=== PATIENT | female | born 1940 | race Caucasian/White ===

== ENCOUNTER 2017-01-24 12:20 | Emergency (ER) | payer OTHER ==
[~2017-01-24 12:20] MED LIST: ATORVASTATIN CA20 MG PO; DEMADEX10 MG PO; DIGOXIN0.125 MG PO; ELIQUIS5 MG PO; FERROUS SULFAT325 M1 PO; GABAPENTIN300 MG PO; KLOR-CON 1010 MEQ PO; LISINOPRIL2.5 MG PO; METOPROLOL SUCC25 MG PO; METRONIDAZOLE500 MG PO; ONDANSETRON ODT4 MG PO; OXAYDO5 MG PO; PERCOCET1 TA2 PO; SEROQUEL25 MG PO; ZESTRIL2.5 MG PO; ZOLOFT25 MG PO; [UNRECOGNIZED DRUG - OTHER] PO
--- NOTE | 2017-01-24 15:15 | DIAGNOSTIC IMAGING REPORT ---
PROCEDURE: XR CHEST 1 VIEW INDICATION: COUGH TECHNIQUE: Portable AP view 02:50 p.m. COMPARISON: Chest 03/31 and 02/14/2016 FINDINGS: Stable moderate cardiomegaly with pulmonary vascular congestion. No effusions. Left subclavian dual lead pacemaker/defibrillator. There are no infiltrates. Mild elevation right hemidiaphragm. No suspicious osseous lesions. IMPRESSION: 1. Cardiomegaly with pulmonary vascular congestion 2. Pacemaker/defibrillator
--- NOTE | 2017-01-24 17:51 | ED CLINICAL REPORT ---
Clinical Report - Physicians/Mid Levels [facility] [address] [place] [address] 01/24/2017 12:20 Patient: ODILON RYAN Time Seen: 12:52. Arrived- By private vehicle. Historian- patient. HISTORY OF PRESENT ILLNESS Chief Complaint: DIARRHEA. This started about 4 - 5 days ago and is still present. It was gradual in onset and has been constant and waxing/waning. The patient has had nausea. She has had diarrhea. This has occurred numerous times. No black stools or bloody stools. Has not recently been on antibiotics. The illness is described as severe. (patient has a history of Clostridium difficile that was treated last summer. She says that her stools have been pretty much normal up until recently. About one week ago she developed "a cold" which then progressed into "the flu." she says that the respiratory symptoms have largely resolved but about 4-5 days ago she developed diarrhea which is very similar to that which she experienced last summer. She says that is very malodorous and green in color. She describes generalized abdominal cramping with it as well.). REVIEW OF SYSTEMS No chills, fever, sweats, calf pain or chest pain. No cough, difficulty breathing, pedal edema, palpitations or urinary problems. All systems otherwise negative, except as recorded above. PAST HISTORY Problems: Atrial Fibrillation. C. Difficile Colitis. Diarrhea. Epistaxis. Spinal Cord Compression. Herniated Disk. Heart Disease. Congestive Heart Failure. Mitral regurgitation. Hypotension. Anemia. Dehydration. Cancer. Hypertension. Coronary Artery Disease. Additional Surgeries: 5 stents placed in Sep 2011. Back Surgery. Cataract Surgery. Defibrillator placed 02/15/12. Hysterectomy. Medications: Warfarin Sodium Oral. Atorvastatin Calcium Oral 20 mg, at bedtime. Digoxin Oral (Tablet 125 mcg) 1 tablet, every other day. Ferrous Sulfate Oral 325 mg, 2x a day. Gabapentin Oral (Capsule 300 mg), 3x a day. Lisinopril Oral 2.5 mg, daily. Ondansetron Oral 4 mg, 3x a day. Potassium Chloride Oral 10 meq, 2x a day. Sertraline HCl Oral 12.5mg, daily. Torsemide Oral (Tablet 20 mg), 2x a day. Allergies: Penicillins. Vancomycin. SOCIAL HISTORY Current every day light tobacco smoker (cigarette)- less than 1/2 a pack per day. No alcohol use or drug use. FAMILY HISTORY No significant family medical history. ADDITIONAL NOTES The nursing notes have been reviewed. PHYSICAL EXAM Vital Signs: 01/24/2017 12:30 BP: 74/48. HR: 88. RR: 15. O2 saturation: 92%. Temp: 97.9 F. Pain level now: 8/10. Have been reviewed. Appearance: Alert. Eyes: Pupils equal, round and reactive to light. ENT: Dry mucous membranes present. Neck: Normal inspection. Neck supple. CVS: Normal heart rate and rhythm. 2/6 systolic murmur. Heart sounds normal. Respiratory: No respiratory distress. Decreased air movement. No rales, rhonchi or wheezes. Abdomen: Soft. Mild tenderness diffusely. Abnormal bowel sounds: hyperactive. No organomegaly. No mass. Back: Normal inspection. Skin: Skin warm and dry. Normal skin color. Normal skin turgor. Extremities: Extremities exhibit normal ROM. No calf tenderness. No lower extremity edema. LABS, X-RAYS, AND EKG EKG: Atrial fibrillation. RBBB. Non-specific ST segment / T wave abnormalities. EKG unchanged when compared with prior EKG. (23 April 2016). The study has been independently viewed by me. Chest X-ray: (IMPRESSION: 1. Cardiomegaly with pulmonary vascular congestion 2. Pacemaker/defibrillator). The X-rays were interpreted by the radiologist and contemporaneously by me. Laboratory Tests: UA-Culture if indicated: (FELTON: 01/24/2017 14:03) ( MsgRcvd 01/24/2017 14:31) Final results Test Result Flag Units (Reference) URINE COLOR YELLOW URINE APPEARANCE SL CLOUDY URINE GLUCOSE NEGATIVE (NEGATIVE) URINE BILIRUBIN NEGATIVE (NEGATIVE) URINE KETONE NEGATIVE (NEGATIVE) URINE SPECIFIC GRAVITY >= 1.030 (1.010-1.030) URINE PH 5.5 (5.0-8.0) URINE PROTEIN NEGATIVE (NEGATIVE) URINE UROBILINOGEN 0.2 EU/dL (0.2-1.0) URINE NITRITE NEGATIVE (NEGATIVE) URINE BLOOD NEGATIVE (NEGATIVE) URINE LEUK ESTERASE NEGATIVE (NEGATIVE) URINE RBC 0-1 rbc/hpf (0-1) URINE WBC 0-1 wbc/hpf (0-1) URINE EPITHELIAL CELLS 3-5 EPI/hpf (0-5) URINE BACTERIA MODERATE (2+ TO 3+) (NONE SEEN) URINE COMMENT CULTURE INDICATED 50-75 Hyaline Casts/l.p.f.2+ AmorphousURINE CULTURES ARE SET-UP BASED ON THE FOLLOWING CRITERIA:POSITIVE NITRITEPOSITIVE LEUKOCYTE ESTERASEGREATER THAN 10 WHITE BLOOD CELLSMODERATE (2+) OR GREATER BACTERIA CBC w Diff: (FELTON: 01/24/2017 13:05) ( [facility] [place] 01/24/2017 14:16) Final results Test Result Flag Units (Reference) WHITE BLOOD COUNT 19.1 H K/uL (4.5-11.5) MANUAL DIFFERENTIAL TO FOLLOW RED BLOOD COUNT 4.23 M/uL (4.00-5.20) HEMOGLOBIN 12.7 gm/dL (12.0-16.0) HEMATOCRIT 38.3 % (36.0-46.0) MEAN CELL VOLUME 91 fL (80-100) MEAN CORPUSCULAR HGB 30 pg (26-34) MEAN CORPUSCULAR HGB CONC 33 g/dL (31-37) RED CELL DISTRIBUTION WIDTH 14.8 % (11.6-14.8) PLATELET COUNT 225 K/uL (150-400) POLY % 73 % (50-75) BAND % 4 % (0-8) LYMPH 13 L % (25-40) MONO 10 % (3-14) EOSINOPHIL % 0 % (0-4) BASOPHIL % 0 % (0-2) METAMYELOCYTE % 0 % (0-1) MYELOCYTE 0 % (0-1) OTHER CELL TYPE 0 RBC MORPHOLOGY NORMOCHROMIC~~NORMOCYTIC OCT COMMENT 1+ VACUOLATED SEGS PT with INR: (FELTON: 01/24/2017 13:02) ( [facility] [place] 01/24/2017 14:58) Final results Test Result Flag Units (Reference) INR 2.2 H (0.8-1.2) Low Intensity Therapy: INR 1.5-2.0 PT range 18.5-23.1Mod.Intensity Therapy: INR 2.0-3.0 PT range 23.1-31.5High Intensity Therapy: INR 2.5-3.5 PT range 27.4-35.5High Intensity Therapy 2: INR 3.0-4.0 PT range 31.5-39.3 APTT 44 H SECONDS (24-34) BNP: (FELTON: 01/24/2017 13:05) ( [facility] [place] 01/24/2017 15:37) Final results Test Result Flag Units (Reference) B-TYPE NATRIURETIC PEPTIDE 262 H pg/ml (5-100) Digoxin Level: (FELTON: 01/24/2017 13:02) ( [facility] 01/24/2017 15:28) Final results Test Result Flag Units (Reference) DIGOXIN 0.4 L ng/mL (0.9-2.0) THYROID STIMULATING HORMONE 0.938 uIU/mL (0.30-3.74) Lactate, Serum: (FELTON: 01/24/2017 14:48) ( [facility] [place] 01/24/2017 15:21) Final results Test Result Flag Units (Reference) LACTIC ACID 1.1 mmol/L (0.4-2.0) CMP: (FELTON: 01/24/2017 13:05) ( [facility] 01/24/2017 13:30) Final results Test Result Flag Units (Reference) GLUCOSE 106 mg/dL (70-110) BUN 67 H mg/dL (7-18) CREATININE 3.9 H mg/dL (0.6-1.3) Estimated GFR 11.98 mL/min Estimated GFR- 14.52 mL/min Note: Persistent reduction over 3 months in eGFR<60 mL/min/1.73 m2 defines CKD. Patients with eGFR values>=60 mL/min/1.73 m2 may also have CKD if evidence ofpersistent proteinuria. Additional information may be foundat www.kidney.org. SODIUM 133 L mmol/L (136-145) POTASSIUM 3.1 L mmol/L (3.5-5.1) CHLORIDE 98 mmol/L (98-107) CARBON DIOXIDE 19 L mmol/L (21-32) CALCIUM 8.2 L mg/dL (8.5-10.1) TOTAL PROTEIN 7.7 g/dL (6.4-8.2) ALBUMIN 3.2 L g/dL (3.3-5.0) BILIRUBIN, TOTAL 0.4 mg/dL (0.0-1.0) ALKALINE PHOSPHATASE 126 H U/L (46-116) AST (SGOT) 17 U/L (15-37) ALT (SGPT) 11 L U/L (12-78) LIPASE 211 U/L (73-393) AMYLASE 71 U/L (25-115) Rapid Influenza Screen: (FELTON: 01/24/2017 13:47) ( MsgRcvd 01/24/2017 14:11) Final results SPECIMEN DESCRIPTION: FOCUSER Test Result Flag Units (Reference) RAPID INFLUENZA SCREEN DATE: 01/24/17 INFLUENZA A: NEGATIVE SCREEN FOR INFLUENZA A INFLUENZA B: NEGATIVE SCREEN FOR INFLUENZA B . PROGRESS AND PROCEDURES Course of Care: 20:03 01/24/17. I explained to the patient to Dr. Cameron would like her to have oral vancomycin. However, given her prior allergy to this she is very resistant to taking medication. Therefore we will treat her with an initial dose of IV Flagyl and when she arrives there he can discuss the potential use of vancomycin with her further as indicated. Discussed case with hospitalist, (Rakesh - Hospitalist and Sugar Chavez, Shirt Cleaner at [address]). Reviewed test results and need for additional work-up. Agreed upon treatment plan and decision to admit. Health care provider will see patient in hospital. Patient/family counseled. Old medical records reviewed. Disposition: Transferred. CLINICAL IMPRESSION Diarrhea. Chronic congestive heart failure. Profound hypotension. Severe dehydration. Hypokalemia. possible Clostridium difficile. (Electronically signed by Wesley Salas MD 01/25/2017 9:17)
--- NOTE | 2017-01-24 17:51 | ED ORDER SUMMARY ---
..... Patient: ODILON RYAN OrderSheet [facility] VisitID: [id number] [address] [place] [address] 76y, F Registration Date/Time: 01/24/2017 ORDER SHEET Weight: 68.0 kg (estimated) Allergies: Penicillins, Vancomycin GENERAL ORDERS: EKG - ER Stat (12:49 01/24/2017 LNations ER Tech1 per protocol) (12:50 KHoerner) Technical Customer Support Specialist (Continuous) (13:04 01/24/2017 JBoardley R.N. per protocol) (13:04 JBoardley R.N.) CBC w Diff Urgent (13:04 01/24/2017 JBoardley R.N. per protocol) (Ack 13:05 KHoerner) (13:08 JBoardley R.N.) CMP Urgent (13:04 01/24/2017 JBoardley R.N. per protocol) (Ack 13:05 KHoerner) (13:08 JBoardley R.N.) UA-Culture if indicated Urgent (13:04 01/24/2017 JBoardley R.N. per protocol) (Ack 13:05 KHoerner) (14:03 JBoardley R.N.) Oxygen (2 L/min) (NC) (13:04 01/24/2017 JBoardley R.N. per protocol) (13:04 JBoardley R.N.) Pulse oximeter (13:04 01/24/2017 JBoardley R.N. per protocol) (13:04 JBoardley R.N.) Vitals (13:04 01/24/2017 JBoardley R.N. per protocol) (13:04 JBoardley R.N.) - (stool guaiac) (13:07 01/24/2017 Evens MCCABE) (Ack 13:21 KHoerner) Amylase Urgent (13:08 01/24/2017 Evens MCCABE) (Ack 13:17 KHoerner) (14:03 JBoardley R.N.) Lipase Urgent (13:08 01/24/2017 Evens MCCABE) (Ack 13:17 Kevin) (14:03 JBoardley R.N.) Stool for C. Difficile Urgent (13:08 01/24/2017 Evens MCACBE) (Ack 13:17 Kevin) Stool WBC Urgent (13:08 01/24/2017 Evens MCCABE) (Ack 13:17 Kevin) Culture, Stool Urgent (13:08 01/24/2017 Evens MCCABE) (Ack 13:17 Kevin) Ova & Parasite Exam Urgent (13:08 01/24/2017 Evens MCCABE) (Ack 13:17 Kevin) Giardia EIA Urgent (13:08 01/24/2017 Evens MCCABE) (Ack 13:17 Kevin) Lactate, Serum Urgent (13:36 01/24/2017 Evens MCCABE) (Ack 13:44 LNations ER Tech1) (14:47 JBoardley R.N.) Rapid Influenza Screen (Nasal Pharyngeal) (can filling machine operator) Urgent (13:37 01/24/2017 Evens MCCABE) (Ack 13:44 LNations ER Tech1) (14:03 JBoardley R.N.) Blood Culture (No) (N/A) Urgent (13:48 01/24/2017 Kevin verbal order read back to Evens MCCABE) (Ack 13:50 Kevin) (14:03 JBoardley R.N.) Chest 1V Urgent (14:33 01/24/2017 Evens MCCABE) (Ack 14:34 Kevin) (14:47 JBoardley R.N.) Digoxin Level Urgent (14:43 01/24/2017 Evens MCCABE) (Ack 14:46 Kevin) (15:18 JBoardley R.N.) TSH Urgent (14:43 01/24/2017 Evens MCCABE) (Ack 14:46 Kevin) (14:47 JBoardley R.N.) PT with INR Urgent (14:44 01/24/2017 Evens MCCABE) (Ack 14:46 Kevin) (14:47 JBoardley R.N.) PTT Urgent (14:44 01/24/2017 Evens MCCABE) (Ack 14:46 Kevin) (14:47 Jordan R.N.) BNP Urgent (15:08 01/24/2017 Evens MCCABE) (Ack 15:09 Kevin) (15:18 JBoardley R.N.) Reddy Catheter (18:26 01/24/2017 Marcellden R.N. verbal order read back to Evens MCCABE) (18:26 Marcellden R.N.) MEDICATION ORDERS: IV FLUIDS: IV NS : initial bolus none -, then 1000 mL/hr for X1 (NOW); Rob (13:03 01/24/2017 JBoardley R.N. per protocol) (13:05 JBoardley R.N.) IV NS : initial bolus 1000 mL (1000 mL/hr), then 1000 mL/hr for X3 (NOW); Urgent (13:36 01/24/2017 Evens MCCABE) (Ack 13:39 JBoardley R.N.) (13:56 JBoardley R.N.) DOPamine Drip IV : 2mcg/kg/min (HIGH ALERT MEDICATION, NOW); Routine (15:53 01/24/2017 BRENDAoarallay R.N. verbal order read back to Evens MCCABE) (16:03 Marcellden R.N.) IV NS : initial bolus none -, then 200 mL/hr for 4h (NOW); Urgent (20:05 01/24/2017 Evens MCCABE) (20:10 KANDISollier R.N.) KCl IV 20 meq/100mL (Run no faster than 10 units/hr, HIGH ALERT MEDICATION, NOW, Run no faster than 10 mEq/hr) (21:15 01/24/2017 Evens MCCABE) (Ack 21:19 RCollier R.N.) (21:30 MARCIOnebel R.N.) ORDER SHEET NOTES: [Electronically signed by Rhina Del Valle R.N. (23:05 01/24/2017)] [Electronically signed by Wesley Salas MD (09:17 01/25/2017)] [Electronically locked/signed by Rhina Del Valle R.N. (23:05 01/24/2017)]
--- NOTE | 2017-01-24 17:51 | ED CLINICAL REPORT ---
Clinical Report - Physicians/Mid Levels [facility] [address] [place] [address] 01/24/2017 12:20 Patient: ODILON RYAN Time Seen: 12:52. Arrived- By private vehicle. Historian- patient. HISTORY OF PRESENT ILLNESS Chief Complaint: DIARRHEA. This started about 4 - 5 days ago and is still present. It was gradual in onset and has been constant and waxing/waning. The patient has had nausea. She has had diarrhea. This has occurred numerous times. No black stools or bloody stools. Has not recently been on antibiotics. The illness is described as severe. (patient has a history of Clostridium difficile that was treated last summer. She says that her stools have been pretty much normal up until recently. About one week ago she developed "a cold" which then progressed into "the flu." she says that the respiratory symptoms have largely resolved but about 4-5 days ago she developed diarrhea which is very similar to that which she experienced last summer. She says that is very malodorous and green in color. She describes generalized abdominal cramping with it as well.). REVIEW OF SYSTEMS No chills, fever, sweats, calf pain or chest pain. No cough, difficulty breathing, pedal edema, palpitations or urinary problems. All systems otherwise negative, except as recorded above. PAST HISTORY Problems: Atrial Fibrillation. C. Difficile Colitis. Diarrhea. Epistaxis. Spinal Cord Compression. Herniated Disk. Heart Disease. Congestive Heart Failure. Mitral regurgitation. Hypotension. Anemia. Dehydration. Cancer. Hypertension. Coronary Artery Disease. Additional Surgeries: 5 stents placed in Sep 2011. Back Surgery. Cataract Surgery. Defibrillator placed 02/15/12. Hysterectomy. Medications: Warfarin Sodium Oral. Atorvastatin Calcium Oral 20 mg, at bedtime. Digoxin Oral (Tablet 125 mcg) 1 tablet, every other day. Ferrous Sulfate Oral 325 mg, 2x a day. Gabapentin Oral (Capsule 300 mg), 3x a day. Lisinopril Oral 2.5 mg, daily. Ondansetron Oral 4 mg, 3x a day. Potassium Chloride Oral 10 meq, 2x a day. Sertraline HCl Oral 12.5mg, daily. Torsemide Oral (Tablet 20 mg), 2x a day. Allergies: Penicillins. Vancomycin. SOCIAL HISTORY Current every day light tobacco smoker (cigarette)- less than 1/2 a pack per day. No alcohol use or drug use. FAMILY HISTORY No significant family medical history. ADDITIONAL NOTES The nursing notes have been reviewed. PHYSICAL EXAM Vital Signs: 01/24/2017 12:30 BP: 74/48. HR: 88. RR: 15. O2 saturation: 92%. Temp: 97.9 F. Pain level now: 8/10. Have been reviewed. Appearance: Alert. Eyes: Pupils equal, round and reactive to light. ENT: Dry mucous membranes present. Neck: Normal inspection. Neck supple. CVS: Normal heart rate and rhythm. 2/6 systolic murmur. Heart sounds normal. Respiratory: No respiratory distress. Decreased air movement. No rales, rhonchi or wheezes. Abdomen: Soft. Mild tenderness diffusely. Abnormal bowel sounds: hyperactive. No organomegaly. No mass. Back: Normal inspection. Skin: Skin warm and dry. Normal skin color. Normal skin turgor. Extremities: Extremities exhibit normal ROM. No calf tenderness. No lower extremity edema. LABS, X-RAYS, AND EKG EKG: Atrial fibrillation. RBBB. Non-specific ST segment / T wave abnormalities. EKG unchanged when compared with prior EKG. (23 April 2016). The study has been independently viewed by me. Chest X-ray: (IMPRESSION: 1. Cardiomegaly with pulmonary vascular congestion 2. Pacemaker/defibrillator). The X-rays were interpreted by the radiologist and contemporaneously by me. Laboratory Tests: UA-Culture if indicated: (FELTON: 01/24/2017 14:03) ( MsgRcvd 01/24/2017 14:31) Final results Test Result Flag Units (Reference) URINE COLOR YELLOW URINE APPEARANCE SL CLOUDY URINE GLUCOSE NEGATIVE (NEGATIVE) URINE BILIRUBIN NEGATIVE (NEGATIVE) URINE KETONE NEGATIVE (NEGATIVE) URINE SPECIFIC GRAVITY >= 1.030 (1.010-1.030) URINE PH 5.5 (5.0-8.0) URINE PROTEIN NEGATIVE (NEGATIVE) URINE UROBILINOGEN 0.2 EU/dL (0.2-1.0) URINE NITRITE NEGATIVE (NEGATIVE) URINE BLOOD NEGATIVE (NEGATIVE) URINE LEUK ESTERASE NEGATIVE (NEGATIVE) URINE RBC 0-1 rbc/hpf (0-1) URINE WBC 0-1 wbc/hpf (0-1) URINE EPITHELIAL CELLS 3-5 EPI/hpf (0-5) URINE BACTERIA MODERATE (2+ TO 3+) (NONE SEEN) URINE COMMENT CULTURE INDICATED 50-75 Hyaline Casts/l.p.f.2+ AmorphousURINE CULTURES ARE SET-UP BASED ON THE FOLLOWING CRITERIA:POSITIVE NITRITEPOSITIVE LEUKOCYTE ESTERASEGREATER THAN 10 WHITE BLOOD CELLSMODERATE (2+) OR GREATER BACTERIA CBC w Diff: (FELTON: 01/24/2017 13:05) ( [facility] [place] 01/24/2017 14:16) Final results Test Result Flag Units (Reference) WHITE BLOOD COUNT 19.1 H K/uL (4.5-11.5) MANUAL DIFFERENTIAL TO FOLLOW RED BLOOD COUNT 4.23 M/uL (4.00-5.20) HEMOGLOBIN 12.7 gm/dL (12.0-16.0) HEMATOCRIT 38.3 % (36.0-46.0) MEAN CELL VOLUME 91 fL (80-100) MEAN CORPUSCULAR HGB 30 pg (26-34) MEAN CORPUSCULAR HGB CONC 33 g/dL (31-37) RED CELL DISTRIBUTION WIDTH 14.8 % (11.6-14.8) PLATELET COUNT 225 K/uL (150-400) POLY % 73 % (50-75) BAND % 4 % (0-8) LYMPH 13 L % (25-40) MONO 10 % (3-14) EOSINOPHIL % 0 % (0-4) BASOPHIL % 0 % (0-2) METAMYELOCYTE % 0 % (0-1) MYELOCYTE 0 % (0-1) OTHER CELL TYPE 0 RBC MORPHOLOGY NORMOCHROMIC~~NORMOCYTIC OCT COMMENT 1+ VACUOLATED SEGS PT with INR: (FELTON: 01/24/2017 13:02) ( [facility] [place] 01/24/2017 14:58) Final results Test Result Flag Units (Reference) INR 2.2 H (0.8-1.2) Low Intensity Therapy: INR 1.5-2.0 PT range 18.5-23.1Mod.Intensity Therapy: INR 2.0-3.0 PT range 23.1-31.5High Intensity Therapy: INR 2.5-3.5 PT range 27.4-35.5High Intensity Therapy 2: INR 3.0-4.0 PT range 31.5-39.3 APTT 44 H SECONDS (24-34) BNP: (FELTON: 01/24/2017 13:05) ( [facility] [place] 01/24/2017 15:37) Final results Test Result Flag Units (Reference) B-TYPE NATRIURETIC PEPTIDE 262 H pg/ml (5-100) Digoxin Level: (FELTON: 01/24/2017 13:02) ( [facility] 01/24/2017 15:28) Final results Test Result Flag Units (Reference) DIGOXIN 0.4 L ng/mL (0.9-2.0) THYROID STIMULATING HORMONE 0.938 uIU/mL (0.30-3.74) Lactate, Serum: (FELTON: 01/24/2017 14:48) ( [facility] [place] 01/24/2017 15:21) Final results Test Result Flag Units (Reference) LACTIC ACID 1.1 mmol/L (0.4-2.0) CMP: (FELTON: 01/24/2017 13:05) ( [facility] 01/24/2017 13:30) Final results Test Result Flag Units (Reference) GLUCOSE 106 mg/dL (70-110) BUN 67 H mg/dL (7-18) CREATININE 3.9 H mg/dL (0.6-1.3) Estimated GFR 11.98 mL/min Estimated GFR- 14.52 mL/min Note: Persistent reduction over 3 months in eGFR<60 mL/min/1.73 m2 defines CKD. Patients with eGFR values>=60 mL/min/1.73 m2 may also have CKD if evidence ofpersistent proteinuria. Additional information may be foundat www.kidney.org. SODIUM 133 L mmol/L (136-145) POTASSIUM 3.1 L mmol/L (3.5-5.1) CHLORIDE 98 mmol/L (98-107) CARBON DIOXIDE 19 L mmol/L (21-32) CALCIUM 8.2 L mg/dL (8.5-10.1) TOTAL PROTEIN 7.7 g/dL (6.4-8.2) ALBUMIN 3.2 L g/dL (3.3-5.0) BILIRUBIN, TOTAL 0.4 mg/dL (0.0-1.0) ALKALINE PHOSPHATASE 126 H U/L (46-116) AST (SGOT) 17 U/L (15-37) ALT (SGPT) 11 L U/L (12-78) LIPASE 211 U/L (73-393) AMYLASE 71 U/L (25-115) Rapid Influenza Screen: (FELTON: 01/24/2017 13:47) ( MsgRcvd 01/24/2017 14:11) Final results SPECIMEN DESCRIPTION: ELECTRICIAN FRONT Test Result Flag Units (Reference) RAPID INFLUENZA SCREEN DATE: 01/24/17 INFLUENZA A: NEGATIVE SCREEN FOR INFLUENZA A INFLUENZA B: NEGATIVE SCREEN FOR INFLUENZA B . PROGRESS AND PROCEDURES Course of Care: 20:03 01/24/17. I explained to the patient to Dr. Cameron would like her to have oral vancomycin. However, given her prior allergy to this she is very resistant to taking medication. Therefore we will treat her with an initial dose of IV Flagyl and when she arrives there he can discuss the potential use of vancomycin with her further as indicated. Discussed case with hospitalist, (Rakesh - Hospitalist and Sugar Chavez, Nuclear Fuel Processing Technician at [address]). Reviewed test results and need for additional work-up. Agreed upon treatment plan and decision to admit. Health care provider will see patient in hospital. Patient/family counseled. Old medical records reviewed. Disposition: Transferred. CLINICAL IMPRESSION Diarrhea. Chronic congestive heart failure. Profound hypotension. Severe dehydration. Hypokalemia. possible Clostridium difficile. (Electronically signed by Wesley Salas MD 01/25/2017 9:17)
--- NOTE | 2017-01-24 17:51 | ED NURSING NOTES ---
Clinical Report - Nurses [facility] [address] [place] [address] 01/24/2017 12:20 Patient: ODILON RYAN TRIAGE Acuity: LEVEL 3. Chief Complaint: DIARRHEA. 12:45 01/24/17. Alert. No acute distress. SEPSIS SCREEN: Sepsis Screen. Negative (no infection suspected/documented). CARLA COMA SCORE: [place] Coma Scale: 15- eyes open spontaneously (4); best verbal response- oriented x 4 (5); best motor response- obeys commands (6). --12:45 Debbie Randolph R.N. 12:30 01/24/17. BP: 74/48. HR: 88. RR: 15. O2 saturation: 92% on room air. Temp: 97.9 F. Pain level now: 8/10. --12:45 Debbie Randolph R.N. Acuity: LEVEL 2. --14:45 Shawn Arciniega R.N. Weight: 68 kg estimated. Height/Length: 61 inches Per Patient. BMI: 28.3. --12:42 Debbie Randolph R.N. Medications Atorvastatin Calcium Oral 20 mg, at bedtime. Digoxin Oral (Tablet 125 mcg) 1 tablet, every other day. Ferrous Sulfate Oral 325 mg, 2x a day. Gabapentin Oral (Capsule 300 mg), 3x a day. Lisinopril Oral 2.5 mg, daily. Ondansetron Oral 4 mg, 3x a day. Potassium Chloride Oral 10 meq, 2x a day. Sertraline HCl Oral 12.5mg, daily. Torsemide Oral (Tablet 20 mg), 2x a day. --12:39 Debbie Randolph R.N. Warfarin Sodium Oral. --12:45 Debbie Randolph R.N. The following entry was struck by Debbie Randolph R.N., 12:45 (01/24/17) Reason - wrong value. <<STRICKEN ENTRY-- Gabapentin Oral. --12:36 Tomasa, Debbie, R.N. --END STRIKE>>. Allergies Penicillins. Vancomycin. --12:39 Debbie Randolph R.N. History Onset. (last ). ( pt states she thinks she has c. diff. she has hx of c diff and is experiencing the same symptoms.). She has had a cough and vomiting. No bloody stools. 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 PAST MEDICAL HX: Immunizations: up-to-date. SOCIAL HX: Light tobacco smoker (cigarette)- less than 1/2 a pack per day. No alcohol use or drug use. FALL RISK ASSESSMENT: Fall risk assessment completed. No fall risk identified. NUTRITIONAL RISK ASSESSMENT: The nutritional risk assessment revealed no deficiencies. FUNCTIONAL ASSESSMENT: Functional assessment: no impairments noted. LEARNING NEEDS ASSESSMENT: The learning needs assessment revealed no barriers. SKIN INTEGRITY ASSESSMENT: Skin integrity risk assessment completed. No skin integrity risk identified. --12:45 Debbie Randolph R.N. Interventions To treatment room. --12:45 Debbie Randolph R.N. Contact isolation precautions initiated. Report given to charge nurse (C-Diff at 1232 when pt arrived to ER). --13:27 Shawn Arciniega R.N. PHYSICAL ASSESSMENT 12:47 01/24/17. To room via wheelchair. GENERAL / NEURO / PSYCH: Alert. Oriented X 4. Appears in no acute distress. RESPIRATORY: Cough productive of sputum. There has been a change from the baseline cough. GI / : Abdominal tenderness diffusely. SKIN: Skin is warm and dry. --12:47 Debbie Randolph R.N. NURSING PROGRESS NOTES 12:48 01/24/17. Patient gowned. Two patient identifiers checked. Call light placed in reach. Bed placed in lowest position. Brakes of bed on. Patient ready for evaluation- chart flagged and notification provided. Patient informed about plan of care. --12:48 Debbie Randolph R.N. EKG time: (9378). EKG was ordered, performed by a tech and shown to the ED physician. --12:52 Danika Rodriguez ER Tech1 12:50 01/24/2017 Site #1 started via IV in the right wrist with an 20g angiocath, with aseptic technique and good blood return; one attempt. Saline lock flushed with 10 mL saline. --13:05 Shawn Arciniega R.N. 12:53 01/24/17. ( Dr Salas notified of pt's last BP (74/48).). --12:53 Debbie Randolph R.N. 12:54 01/24/2017 Started bag #1 1000 mL IV Fluids IV NS (Saline); at 1000 mL/hr over 1 hour(s) via site #1. Allergies verified and confirmed 5 rights. Completed per protocol. --13:05 Shawn Arciniega R.N. 12:55 01/24/2017 Site #2 started via IV in the left antecubital space with an 20g angiocath; one attempt. Blood drawn: rainbow set. Labeled in the presence of the patient and sent to the lab. Saline lock flushed with 10 mL saline. --13:05 Shawn Arciniega R.N. 13:07 01/24/17. Patient ID band checked for patient name and birthdate: patient confirmed. Blood samples drawn from the left antecubital space by nurse ; labeled in presence of the patient and sent to lab: rainbow set. (blood drawn by ALEXI Escobar). --13:07 Debbie Randolph R.N. 13:14 01/24/17. BP: 71/39. HR: 73. O2 saturation: 98%. O2 started via nasal cannula at 2 liters/minute. --13:14 Shawn Arciniega R.N. 13:09 01/24/2017 Started bag #2 1000 mL IV Fluids IV NS (Saline); at 1000 mL/hr over 1 hour(s) via site #2. Allergies verified and confirmed 5 rights. Completed per protocol. --13:24 Shawn Arciniega R.N. 13:14 01/24/17. Cardiac rhythm: atrial fibrillation; (83). --13:14 Shawn Arciniega R.N. 13:14 01/24/17. ( aware of low BP, MD at bedside). --13:14 Shawn Arciniega R.N. 13:20 01/24/17. ( Moved pt to bed 2 as pt has low BP). --13:20 Shawn Arciniega R.N. 13:21 01/24/17. Cardiac rhythm: atrial fibrillation. --13:21 Shawn Arciniega R.N. 13:20 01/24/17. BP: 78/52. HR: 71. O2 saturation: 100% on nasal cannula at 2 liters/minute. Additional comments: manual BP. --13:21 Shawn Arciniega R.N. 13:22 01/24/17. ( Pt placed in reverse trendelenburg due to low BP). --13:22 Shawn Arciniega R.N. 12:45. bus driver/monitor, pulse oximeter and NIBP monitor placed on patient; monitor alarms on. --13:33 Shawn Arciniega R.N. 13:34 01/24/17. BP: 73/49. HR: 85. RR: 20. O2 saturation: 98% on nasal cannula at 2 liters/minute. --13:34 Shawn Arciniega R.N. 13:34 01/24/17. Cardiac rhythm: atrial fibrillation. --13:34 Shawn Arciniega R.N. 13:34 01/24/17. Patient and family informed about reason for wait and about plan of care. --13:34 Shawn Arciniega R.N. 13:34 01/24/17. ED physician notified about patient's status. --13:34 Shawn Arciniega R.N. 13:41 01/24/17. Cardiac rhythm: atrial fibrillation. --13:41 Shawn Arciniega R.N. 13:41 01/24/17. BP: 76/39. HR: 93. RR: 16. O2 saturation: 100% on nasal cannula at 2 liters/minute. --13:41 Shawn Arciniega R.N. 13:49 01/24/17. Patient ID band checked for patient name and birthdate: patient confirmed. Flu swab obtained by RN via nasal swab. Labeled in the presence of the patient and sent to lab. --13:49 Debbie Randolph R.N. 13:55 01/24/2017 IV Fluids IV NS Discontinued: bag #1 infused. Total amount infused: 1000 mL. IV patency established. IV site checked: no pain, redness, or swelling. IV flushed thoroughly. --13:55 Shawn Arciniega R.N. 13:55 01/24/2017 IV Fluids IV NS Discontinued: bag #2 infused. Total amount infused: 1000 mL. IV patency established. IV site checked: no pain, redness, or swelling. IV flushed thoroughly. --13:55 Shawn Arciniega R.N. 13:56 01/24/2017 Started bag #3 1000 mL IV Fluids IV NS (Saline); at 999 mL/hr over 1 hour(s) via site #1. Allergies verified and confirmed 5 rights. Completed per protocol. --13:56 Shawn Arciniega R.N. 14:01/24/17. 14 fr bryan catheter. Reason for indwelling catheter: critical need to monitor intake and output. During procedure hand hygiene observed and sterile equipment and aseptic technique used. Return of 75 mL yellow-colored cloudy urine; attached to bedside drainage bag positioned below the bladder and secured with tape. She tolerated procedure well. --14:05 Shawn Arciniega R.N. 14:01/24/17. Cardiac rhythm: atrial fibrillation. --14:06 Shawn Arciniega R.N. 14:01/24/17. BP: 80/46. HR: 77. O2 saturation: 97% on nasal cannula at 2 liters/minute. --14:06 Shawn Arciniega R.N. 14:17 01/24/17. Cardiac rhythm: atrial fibrillation. --14:17 Shawn Arciniega R.N. 14:16 01/24/17. BP: 75/39. HR: 81. RR: 18. O2 saturation: 99% on nasal cannula at 2 liters/minute. --14:17 Shawn Arciniega R.N. 14:01/24/17. BP: 75/39. HR: 89. RR: 18. O2 saturation: 98% on nasal cannula at 2 liters/minute. --14:19 Shawn Arciniega R.N. 14:01/24/17. Cardiac rhythm: atrial fibrillation. --14:19 Shawn Arciniega R.N. 14:01/24/17. BP: 87/39. HR: 90. RR: 18. O2 saturation: 98% on nasal cannula at 2 liters/minute. --14:23 Shawn Arciniega R.N. 14:23 01/24/17. Cardiac rhythm: atrial fibrillation. --14:23 hSawn Arciniega R.N. 14:24 01/24/17. CARLA COMA SCORE: [place] Coma Scale: 15- eyes open spontaneously (4); best verbal response- oriented x 4 (5); best motor response- obeys commands (6). --14:24 Shawn Arciniega R.N. 14:33 01/24/17. ED physician notified about patient's status. Notified (Coughing up phlem). --14:33 Shawn Arciniega R.N. 14:34 01/24/17. Patient waiting for (X-ray ordered). --14:34 Shawn Arciniega R.N. 14:38 01/24/17. BP: 88/52. HR: 83. RR: 18. O2 saturation: 98% on nasal cannula at 2 liters/minute. --14:42 Shawn Arciniega R.N. 14:42 01/24/17. Cardiac rhythm: atrial fibrillation; (86). --14:42 Shawn Arciniega R.N. 14:52 01/24/17. ( X-ray completed). --14:52 Shawn Arciniega R.N. 15:18 01/24/17. --15:18 Shawn Arciniega R.N. 15:18 01/24/17. BP: 82/50. HR: 87. RR: 14. O2 saturation: 100% on nasal cannula at 2 liters/minute. --15:18 Shawn Arciniega R.N. 15:18 01/24/17. Cardiac rhythm: atrial fibrillation. --15:18 Shawn Arciniega R.N. 15:37 01/24/17. Patient and family informed about reason for wait and about plan of care (Updated pts daughter Brigitte at [phone]). --15:37 Shawn Arciniega R.N. 15:37 01/24/17. Cardiac rhythm: atrial fibrillation. --15:37 Shawn Arciniega R.N. 15:38 01/24/17. ( Place pt on bedpan). --15:38 Shawn Arciniega R.N. 15:53 01/24/2017 IV Fluids IV NS Discontinued: bag #3. Total amount infused: 500 mL. IV patency established. IV site checked: no pain, redness, or swelling. IV flushed thoroughly. --15:53 Shawn Arciniega R.N. 15:54 01/24/17. ( Saline locked IVF due to increased BNP, new order to start dopamine, pt off of bed bansal, pt is sleeping off and on). --15:54 Shawn Arciniega R.N. 15:55 01/24/17. Cardiac rhythm: atrial fibrillation. --15:55 Shawn Arciniega R.N. 15:54 01/24/17. BP: 72/43. HR: 73. RR: 16. O2 saturation: 98% on nasal cannula at 2 liters/minute. --15:55 Shawn Arciniega R.N. 16:03 01/24/2017 Started 2 mcg of Dopamine Drip IV in bag #1 250 mL; at 5.1 mL/hr via site #1 via IV pump. Allergies verified and confirmed 5 rights. IV patency established. IV site checked: no pain, redness, or swelling. IV flushed thoroughly pre- and post-medication administration (dose based on wt of 68kg). --16:03 Debbie Randolph R.N. 16:04 01/24/17. BP: 74/28. HR: 85. O2 saturation: 97%. --16:05 Debbie Randolph R.N. 16:05 01/24/17. --16:05 Debbie Randolph R.N. 16:07 01/24/17. ( increased dopamine dose to 4mcg/kg/min). --16:07 Debbie Randolph R.N. 16:17 01/24/17. ( Increased to 6 mcg/kg/min, per MD order). --16:17 Shawn Arciniega R.N. 16:17 01/24/17. BP: 88/39. HR: 80. RR: 14. O2 saturation: 100% on nasal cannula at 2 liters/minute. --16:18 Shawn Arciniega R.N. 16:18 01/24/17. Cardiac rhythm: atrial fibrillation. --16:18 Shawn Arciniega R.N. 16:18 01/24/17. Patient and family informed about reason for wait and about plan of care. --16:18 Shawn Arciniega R.N. 16:18 01/24/17. Patient waiting for (pt to transfer due to ARF). --16:18 Shawn Arciniega R.N. 16:27 01/24/17. BP: 93/69. HR: 92. RR: 18. O2 saturation: 98% on nasal cannula at 2 liters/minute. --16:27 Shawn Arciniega R.N. 16:27 01/24/17. Cardiac rhythm: atrial fibrillation. --16:27 Shawn Arciniega R.N. 16:42 01/24/17. BP: 111/45. HR: 92. RR: 16. O2 saturation: 98% on nasal cannula at 2 liters/minute. --16:43 Shawn Arciniega R.N. 16:43 01/24/17. Cardiac rhythm: atrial fibrillation. --16:43 Shawn Arciniega R.N. 17:10 01/24/17. BP: 95/45 taken while lying. HR: 94. RR: 12. O2 saturation: 92%. --17:12 Debbie Randolph R.N. 17:12 01/24/17. Call light placed in reach. Side rails up x 2. Bed placed in lowest position. Brakes of bed on. ( pt sleeping.). --17:12 Debbie Randolph R.N. 17:24 01/24/17. Cardiac rhythm: atrial fibrillation. ( Updated patients daughter on POC (Brigitte) over phone, updated pt will be transferring to another hospital). --17:25 Shawn Arciniega R.N. 17:56 01/24/17. ( Pt talking with daughter (Brigitte) over her cell phone). --17:56 Shawn Arciniega R.N. 18:34 01/24/17. Cardiac rhythm: atrial fibrillation. --18:34 Shawn Arciniega R.N. 18:34 01/24/17. BP: 125/46. HR: 77. RR: 16. O2 saturation: 98% on nasal cannula at 2 liters/minute. --18:34 Shawn Arciniega R.N. 18:49 01/24/17. Cardiac rhythm: atrial fibrillation. --18:49 Shawn Arciniega R.N. 18:49 01/24/17. BP: 106/61. HR: 78. RR: 18. O2 saturation: 100% on nasal cannula at 2 liters/minute. --18:49 Shawn Arciniega R.N. 19:20 01/24/17. --19:20 Shawn Arciniega R.N. 19:19 01/24/17. BP: 102/46. HR: 62. RR: 14. O2 saturation: 100% on nasal cannula at 2 liters/minute. --19:20 Shawn Arciniega R.N. 19:20 01/24/17. Cardiac rhythm: atrial fibrillation. --19:20 Shawn Arciniega R.N. 19:20 01/24/17. Care transferred and report given (Rhina RN). --19:20 Shawn Arciniega R.N. The patient is calm and resting quietly. --19:22 Rhina Del Valle R.N. ( BP reading 79/61, cuff repositioned and untangled from pt gown. additional reading optained). --20:07 Rhina Del Valle R.N. 20:07 01/24/17. BP: 91/51. HR: 92. RR: 15 (regular and unlabored). O2 saturation: 94% on nasal cannula at 2 liters/minute. --20:09 Rhina Del Valle R.N. 18:03 01/24/2017 Dopamine Drip IV via IV site #1 Rate Changed: bag #1 increased to 6 mcg/kg/hr via IV pump. IV patency established. IV site checked: no pain, redness, or swelling. IV flushed thoroughly. Confirmed 5 Rights (rate changed by day shift RN). --22:04 Rhina Del Valle R.N. 20:10 01/24/2017 Started bag #3 1000 mL IV Fluids IV NS (Saline); at 200 mL/hr via site #1 via IV pump. Allergies verified and confirmed 5 rights. IV patency established. IV site checked: no pain, redness, or swelling. IV flushed thoroughly pre- and post-medication administration (IV bag #3 restarted at new rate.). --20:10 Rhina Del Valle R.N. <<STRICKEN ENTRY-- 20:57 01/24/2017 Dopamine Drip IV via IV site #1 Rate Changed: bag #1 decreased to 6 mcg/kg/hr. IV patency established. IV site checked: no pain, redness, or swelling. IV flushed thoroughly. Confirmed 5 Rights. --20:57 Rhina Del Valle R.N. --END STRIKE>> Correction. --21:42 Rhina Del Valle R.N. 21:23 01/24/17. BP: 103/39. HR: 88. RR: 15 (regular and unlabored). O2 saturation: 96% on nasal cannula at 2 liters/minute. --21:24 Rhina Del Valle R.N. 20:57 01/24/2017 Dopamine Drip IV via IV site #1 Rate Changed: bag #1 decreased to 5 mcg/kg/min. IV patency established. IV site checked: no pain, redness, or swelling. IV flushed thoroughly. Confirmed 5 Rights. --21:42 Rhina Del Valle R.N. 21:30 01/24/2017 Started 20 meq of KCL (Potassium Chloride) IVPB in bag #1 100 mL; at 50 mL/hr over 2 hour(s) via site #2 --21:30 Esther Bragg R.N. 21:31 01/24/2017 Started bag #4 1000 mL IV Fluids IV NS (Saline); at 200 mL/hr over 5 hour(s) via site #2 via IV pump. Allergies verified and confirmed 5 rights. IV patency established. IV site checked: no pain, redness, or swelling. IV flushed thoroughly pre- and post-medication administration. --21:31 Esther Bragg R.N. 21:50 01/24/2017 IV Fluids IV NS Discontinued: bag #3 completed. Total amount infused: 1000 mL. IV patency established. IV site checked: no pain, redness, or swelling. IV flushed thoroughly. --21:53 Rhina Del Valle R.N. 22:01 01/24/17. BP: 76/48. HR: 68. RR: 15 (regular and unlabored). O2 saturation: 94% on nasal cannula at 2 liters/minute. --22:02 Rhina Del Valle R.N. 22:03 01/24/2017 Dopamine Drip IV via IV site #1 Rate Changed: bag #1 increased to 6 mcg/kg/min via IV pump. IV patency established. IV site checked: no pain, redness, or swelling. IV flushed thoroughly. Confirmed 5 Rights. --22:03 Rhina Del Valle R.N. 22:47 01/24/2017 Dopamine Drip IV Continued: upon transfer at the rate of 6 mcg/kg/min. 143 mL remaining bag #1. IV patency established. IV site checked: no pain, redness, or swelling. IV flushed thoroughly. --22:47 Rhina Del Valle R.N. 22:47 01/24/2017 IV Fluids IV NS Continued: upon transfer at the rate of 200 mL/hr. 757 mL remaining bag #4. IV patency established. IV site checked: no pain, redness, or swelling. IV flushed thoroughly. --22:47 Rhina Del Valle R.N. 22:47 01/24/2017 KCL IVPB Continued: at the rate of 50 mL/hr. 42.1 mL remaining bag #1. IV patency established. IV site checked: no pain, redness, or swelling. IV flushed thoroughly. --22:47 Rhina Del Valle R.N. 22:30. ( assisted pt to use bedpan, pt states need for BM. very little stool noted, not enough to collect and send to LAB. Pt cleaned up and repositioned in bed.). --22:49 Rhina Del Valle R.N. Intake & Output 14:57 01/24/17. IV fluids: 2500 mL. Urine, with return of 50 mL aguilar-colored clear urine; odor is normal; attached to bedside drainage bag. --14:57 Debbie Randolph R.N. 16:08 01/24/17. Urine, with return of 50 mL yellow-colored clear urine; odor is normal; attached to bedside drainage bag. --16:08 Debbie Randolph R.N. 17:08 01/24/17. Urine: 120 mL, with return of yellow-colored clear urine; attached to bedside drainage bag. --17:08 Debbie Randolph R.N. 19:19 01/24/17. Urine: 200 mL, with return of yellow-colored urine; attached to bedside drainage bag. --19:19 Shawn Arciniega R.N. Urine, with return of 250 mL yellow-colored clear urine. --22:44 Rhina Del Valle R.N. DISPOSITION / DISCHARGE 14:47 01/24/17. Patient's personal items include: shirt, pants and purse, Afgan, no weapons, no meds, no money on patient; items were placed in belongings bag, given to the patient and transported with the patient. --14:47 Shawn Arciniega R.N. 21:00 01/24/17. BP: 104/51. HR: 70. RR: 15. O2 saturation: 96%. Pain level now: 0/10. --21:01 Rhina Del Valle R.N. ( attempted to give report to RN, RN states that since the Dopamine drip is at 6mcg they can not take the pt, EDMD consulted and instructed to lower Dopamine gtt to 5mcg. [facility] RN called again and RN still refuses to take pt. Transfer center notified and Admitting MD consulted. currently waiting for new bed assignment.). --21:07 Rhina Del Valle R.N. ( Spoke with pts daughterBrigitte. Brigitte upset that pt is going to [facility], states that it is too far for the family to get to her. Apologies given & family reassured that we make the best effort to keep pts close but that bed availability is an issue.). --21:51 Rhina Del Valle R.N. 22:06 01/24/17. BP: 81/48. HR: 77. RR: 15. O2 saturation: 93% on nasal cannula at 2 liters/minute. --22:07 Rhina Del Valle R.N. 22:22 01/24/17. BP: 95/63. HR: 95. RR: 16. O2 saturation: 93% on nasal cannula at 2 liters/minute. Temp: 98 F (oral). --22:34 Rhina Del Valle R.N. Report was given to a nurse via a phone call. Report included patient's care, treatment, medications, reviewed medication reconcilliation, and condition (including any recent changes or anticipated changes). All questions were answered. Report was acknowledged and care was transferred. Bed obtained and ready. --22:34 Rhina Del Valle R.N. Transported via stretcher by nurse and EMS with monitor, IV and O2. --22:49 Rhina Del Valle R.N. Patient's personal items include, patient property sent with pt.; items were transported with the patient. --22:49 Rhina Del Valle R.N. Transferred to [facility]. Summary of care provided to EMS via paper. --22:50 Rhina Del Valle R.N. Departure time: 22:50. --22:50 Rhina Del Valle R.N. ( UNABLE TO COLLECT STOOL SAMPLES DURING VISIT.). --23:04 Rhina Del Valle R.N. Locked/Released at 01/24/2017 23:05 by Rhina Del Valle R.N.
--- NOTE | 2017-01-24 17:51 | ED ORDER SUMMARY ---
..... Patient: ODILON RYAN OrderSheet [facility] VisitID: [id number] [address] [place] [address] 76y, F Registration Date/Time: 01/24/2017 ORDER SHEET Weight: 68.0 kg (estimated) Allergies: Penicillins, Vancomycin GENERAL ORDERS: EKG - ER Stat (12:49 01/24/2017 LNations ER Tech1 per protocol) (12:50 KHoerner) Sign Writer Hand (Continuous) (13:04 01/24/2017 JBoardley R.N. per protocol) (13:04 JBoardley R.N.) CBC w Diff Urgent (13:04 01/24/2017 JBoardley R.N. per protocol) (Ack 13:05 KHoerner) (13:08 JBoardley R.N.) CMP Urgent (13:04 01/24/2017 JBoardley R.N. per protocol) (Ack 13:05 KHoerner) (13:08 JBoardley R.N.) UA-Culture if indicated Urgent (13:04 01/24/2017 JBoardley R.N. per protocol) (Ack 13:05 KHoerner) (14:03 JBoardley R.N.) Oxygen (2 L/min) (NC) (13:04 01/24/2017 JBoardley R.N. per protocol) (13:04 JBoardley R.N.) Pulse oximeter (13:04 01/24/2017 JBoardley R.N. per protocol) (13:04 JBoardley R.N.) Vitals (13:04 01/24/2017 JBoardley R.N. per protocol) (13:04 JBoardley R.N.) - (stool guaiac) (13:07 01/24/2017 Evens MCCABE) (Ack 13:21 KHoerner) Amylase Urgent (13:08 01/24/2017 Evens MCCABE) (Ack 13:17 KHoerner) (14:03 JBoardley R.N.) Lipase Urgent (13:08 01/24/2017 Evens MCCABE) (Ack 13:17 Kevin) (14:03 JBoardley R.N.) Stool for C. Difficile Urgent (13:08 01/24/2017 Evens MCCABE) (Ack 13:17 Kevin) Stool WBC Urgent (13:08 01/24/2017 Evens MCCABE) (Ack 13:17 Kevin) Culture, Stool Urgent (13:08 01/24/2017 Evens MCCABE) (Ack 13:17 Kevin) Ova & Parasite Exam Urgent (13:08 01/24/2017 Evens MCCABE) (Ack 13:17 Kevin) Giardia EIA Urgent (13:08 01/24/2017 Evens MCCABE) (Ack 13:17 Kevin) Lactate, Serum Urgent (13:36 01/24/2017 Evens MCCABE) (Ack 13:44 LNations ER Tech1) (14:47 JBoardley R.N.) Rapid Influenza Screen (Nasal Pharyngeal) (leasing specialist) Urgent (13:37 01/24/2017 Evens MCCABE) (Ack 13:44 LNations ER Tech1) (14:03 JBoardley R.N.) Blood Culture (No) (N/A) Urgent (13:48 01/24/2017 Kevin verbal order read back to Evens MCCABE) (Ack 13:50 Kevin) (14:03 JBoardley R.N.) Chest 1V Urgent (14:33 01/24/2017 Evens MCCABE) (Ack 14:34 Kevin) (14:47 JBoardley R.N.) Digoxin Level Urgent (14:43 01/24/2017 Evens MCCABE) (Ack 14:46 Kevin) (15:18 JBoardley R.N.) TSH Urgent (14:43 01/24/2017 Evens MCCABE) (Ack 14:46 Kevin) (14:47 JBoardley R.N.) PT with INR Urgent (14:44 01/24/2017 Evens MCCABE) (Ack 14:46 Kevin) (14:47 JBoardley R.N.) PTT Urgent (14:44 01/24/2017 Evens MCCABE) (Ack 14:46 Kevin) (14:47 Jordan R.N.) BNP Urgent (15:08 01/24/2017 Evens MCCABE) (Ack 15:09 Kevin) (15:18 JBoardley R.N.) Reddy Catheter (18:26 01/24/2017 Marcellden R.N. verbal order read back to Evens MCCABE) (18:26 Marcellden R.N.) MEDICATION ORDERS: IV FLUIDS: IV NS : initial bolus none -, then 1000 mL/hr for X1 (NOW); Rob (13:03 01/24/2017 JBoardley R.N. per protocol) (13:05 JBoardley R.N.) IV NS : initial bolus 1000 mL (1000 mL/hr), then 1000 mL/hr for X3 (NOW); Urgent (13:36 01/24/2017 Evens MCCABE) (Ack 13:39 JBoardley R.N.) (13:56 JBoardley R.N.) DOPamine Drip IV : 2mcg/kg/min (HIGH ALERT MEDICATION, NOW); Routine (15:53 01/24/2017 BRENDAoarallay R.N. verbal order read back to Evens MCCABE) (16:03 Marcellden R.N.) IV NS : initial bolus none -, then 200 mL/hr for 4h (NOW); Urgent (20:05 01/24/2017 Evens MCCABE) (20:10 KANDISollier R.N.) KCl IV 20 meq/100mL (Run no faster than 10 units/hr, HIGH ALERT MEDICATION, NOW, Run no faster than 10 mEq/hr) (21:15 01/24/2017 Evens MCCABE) (Ack 21:19 RCollier R.N.) (21:30 MARCIOnebel R.N.) ORDER SHEET NOTES: [Electronically signed by Rhina Del Valle R.N. (23:05 01/24/2017)] [Electronically signed by Wesley Salas MD (09:17 01/25/2017)] [Electronically locked/signed by Rhina Del Valle R.N. (23:05 01/24/2017)]
--- NOTE | 2017-01-25 09:17 | ED MAR SUMMARY ---
..... Medication Administration Record [facility] [address] [place] [address] Patient: ODILON RYAN Visit ID: [id number] 76y, F Weight: 68.0 kg Height/Length: 61 in BMI: 28.3 ALLERGIES: Penicillins, Vancomycin Start 12:54 01/24/2017 Shawn Arciniega R.N., Stop 13:55 01/24/2017 Shawn Arciniega R.N. Medication Administered: IV NS (SALINE), Dose: IV Fluids over 1 hour(s), Rate: 1000 mL/hr, Dispensed: 1000 mL bag, Site: #1 right wrist. Medication Ordered: IV NS : initial bolus none -, then 1000 mL/hr for X1 (NOW); Rob. Start 13:09 01/24/2017 Shawn Arciniega R.N., Stop 13:55 01/24/2017 Shawn Arciniega R.N. Medication Administered: IV NS (SALINE), Dose: IV Fluids over 1 hour(s), Rate: 1000 mL/hr, Dispensed: 1000 mL bag, Site: #2 left AC. Medication Ordered: IV NS : initial bolus none -, then 1000 mL/hr for X1 (NOW); Rob. Start 13:56 01/24/2017 Shawn Arciniega R.N., Stop 15:53 01/24/2017 Shawn Arciniega R.N. Medication Administered: IV NS (SALINE), Dose: IV Fluids over 1 hour(s), Rate: 999 mL/hr, Dispensed: 1000 mL bag, Site: #1 right wrist. Medication Ordered: IV NS : initial bolus 1000 mL (1000 mL/hr), then 1000 mL/hr for X3 (NOW); Urgent. Start 16:03 01/24/2017 Debbie Randolph RAsim, Continued Upon Transfer 22:47 01/24/2017 Rhina Del Valle RAriela. Medication Administered: DOPAMINE [IV DRIP], Dose: 2 mcg Drip IV, Rate: 5.1 mL/hr, Dispensed: 250 mL bag, Site: #1 right wrist. Medication Ordered: DOPamine Drip IV : 2mcg/kg/min (HIGH ALERT MEDICATION, NOW); Routine. Start 20:10 01/24/2017 Rhina Del Valle RAsim, Stop 21:50 01/24/2017 Rhina Del Valle R.N. Medication Administered: IV NS (SALINE), Dose: IV Fluids, Rate: 200 mL/hr, Dispensed: 1000 mL bag, Site: #1 right wrist. Medication Ordered: IV NS : initial bolus none -, then 200 mL/hr for 4h (NOW); Urgent. Start 21:30 01/24/2017 Esther Bragg R.N., Continued Upon Disposition 22:47 01/24/2017 Rhina Del Valle R.N. Medication Administered: KCL [IVPB] (POTASSIUM CHLORIDE), Dose: 20 meq IVPB over 2 hour(s), Rate: 50 mL/hr, Dispensed: 100 mL bag, Site: #2 left AC. Medication Ordered: KCl IV 20 meq/100mL (Run no faster than 10 units/hr, HIGH ALERT MEDICATION, NOW, Run no faster than 10 mEq/hr). Start 21:31 01/24/2017 Esther Bragg R.N., Continued Upon Transfer 22:47 01/24/2017 Rhina Del Valle RSimranN. Medication Administered: IV NS (SALINE), Dose: IV Fluids over 5 hour(s), Rate: 200 mL/hr, Dispensed: 1000 mL bag, Site: #2 left AC. Medication Ordered: IV NS : initial bolus none -, then 200 mL/hr for 4h (NOW); Urgent.
--- NOTE | 2017-01-25 09:17 | ED DISCHARGE INSTRUCTIONS ---
Patient: ODILON RYAN General Instructions [facility] VisitID: [id number] [address] [place] [address] 76y, F Registration Date/Time: 01/24/2017 Diarrhea. Chronic congestive heart failure. Profound hypotension. Severe dehydration. Hypokalemia. (Electronically signed by Wesley Salas MD 01/25/2017 9:17)
--- NOTE | 2017-01-25 09:17 | ED MED RECONCILIATION SUMMARY ---
Patient: ODILON RYAN Medication Reconciliation Report [facility] VisitID: [id number] [address] [place] [address] 76y, F Registration Date/Time: 01/24/2017 Weight: 68.0 kg Height/Length: 61 in. BMI: 28.3 ALLERGIES: Penicillins, Vancomycin The patient's Home Medications are listed below: THE FOLLOWING MEDICATIONS NEED TO BE RECONCILED: Atorvastatin Calcium Oral 20 mg, at bedtime Digoxin Oral (125 mcg) 1 tablet, every other day Ferrous Sulfate Oral 325 mg, 2x a day Gabapentin Oral (300 mg), 3x a day Lisinopril Oral 2.5 mg, daily Ondansetron Oral 4 mg, 3x a day Potassium Chloride Oral 10 meq, 2x a day Sertraline HCl Oral 12.5mg, daily Torsemide Oral (20 mg), 2x a day Warfarin Sodium Oral The source(s) of the original Home Medication information: Not obtained. The following Medications were given to the patient in the Emergency Department: IV NS IV Fluids bolus 0, then 1000 mL/hr, administered: 01/24/2017 12:54:00 PM IV NS IV Fluids bolus 0, then 1000 mL/hr, administered: 01/24/2017 1:09:00 PM IV NS IV Fluids bolus 0, then 999 mL/hr, administered: 01/24/2017 1:56:00 PM Dopamine [IV Drip] Drip IV bolus 0, then 2 mcg 5.1 mL/hr, administered: 01/24/2017 4:03:00 PM IV NS IV Fluids bolus 0, then 200 mL/hr, administered: 01/24/2017 8:10:00 PM KCL [IVPB] IVPB bolus 0, then 20 meq 50 mL/hr, administered: 01/24/2017 9:30:00 PM IV NS IV Fluids bolus 0, then 200 mL/hr, administered: 01/24/2017 9:31:00 PM The following Medications were prescribed to the patient: None.
--- NOTE | 2017-01-25 09:17 | ED MED RECONCILIATION SUMMARY ---
Patient: ODILON RYAN Medication Reconciliation Report [facility] VisitID: [id number] [address] [place] [address] 76y, F Registration Date/Time: 01/24/2017 Weight: 68.0 kg Height/Length: 61 in. BMI: 28.3 ALLERGIES: Penicillins, Vancomycin The patient's Home Medications are listed below: THE FOLLOWING MEDICATIONS NEED TO BE RECONCILED: Atorvastatin Calcium Oral 20 mg, at bedtime Digoxin Oral (125 mcg) 1 tablet, every other day Ferrous Sulfate Oral 325 mg, 2x a day Gabapentin Oral (300 mg), 3x a day Lisinopril Oral 2.5 mg, daily Ondansetron Oral 4 mg, 3x a day Potassium Chloride Oral 10 meq, 2x a day Sertraline HCl Oral 12.5mg, daily Torsemide Oral (20 mg), 2x a day Warfarin Sodium Oral The source(s) of the original Home Medication information: Not obtained. The following Medications were given to the patient in the Emergency Department: IV NS IV Fluids bolus 0, then 1000 mL/hr, administered: 01/24/2017 12:54:00 PM IV NS IV Fluids bolus 0, then 1000 mL/hr, administered: 01/24/2017 1:09:00 PM IV NS IV Fluids bolus 0, then 999 mL/hr, administered: 01/24/2017 1:56:00 PM Dopamine [IV Drip] Drip IV bolus 0, then 2 mcg 5.1 mL/hr, administered: 01/24/2017 4:03:00 PM IV NS IV Fluids bolus 0, then 200 mL/hr, administered: 01/24/2017 8:10:00 PM KCL [IVPB] IVPB bolus 0, then 20 meq 50 mL/hr, administered: 01/24/2017 9:30:00 PM IV NS IV Fluids bolus 0, then 200 mL/hr, administered: 01/24/2017 9:31:00 PM The following Medications were prescribed to the patient: None.
--- NOTE | 2017-01-25 09:17 | ED DISCHARGE INSTRUCTIONS ---
Patient: ODILON RYAN General Instructions [facility] VisitID: [id number] [address] [place] [address] 76y, F Registration Date/Time: 01/24/2017 Diarrhea. Chronic congestive heart failure. Profound hypotension. Severe dehydration. Hypokalemia. (Electronically signed by Wesley Salas MD 01/25/2017 9:17)
--- NOTE | 2017-01-25 09:17 | ED MAR SUMMARY ---
..... Medication Administration Record [facility] [address] [place] [address] Patient: ODILON RYAN Visit ID: [id number] 76y, F Weight: 68.0 kg Height/Length: 61 in BMI: 28.3 ALLERGIES: Penicillins, Vancomycin Start 12:54 01/24/2017 Shawn Arciniega R.N., Stop 13:55 01/24/2017 Shawn Arciniega R.N. Medication Administered: IV NS (SALINE), Dose: IV Fluids over 1 hour(s), Rate: 1000 mL/hr, Dispensed: 1000 mL bag, Site: #1 right wrist. Medication Ordered: IV NS : initial bolus none -, then 1000 mL/hr for X1 (NOW); Rob. Start 13:09 01/24/2017 Shawn Arciniega R.N., Stop 13:55 01/24/2017 Shawn Arciniega R.N. Medication Administered: IV NS (SALINE), Dose: IV Fluids over 1 hour(s), Rate: 1000 mL/hr, Dispensed: 1000 mL bag, Site: #2 left AC. Medication Ordered: IV NS : initial bolus none -, then 1000 mL/hr for X1 (NOW); Rob. Start 13:56 01/24/2017 Shawn Arciniega R.N., Stop 15:53 01/24/2017 Shawn Arciniega R.N. Medication Administered: IV NS (SALINE), Dose: IV Fluids over 1 hour(s), Rate: 999 mL/hr, Dispensed: 1000 mL bag, Site: #1 right wrist. Medication Ordered: IV NS : initial bolus 1000 mL (1000 mL/hr), then 1000 mL/hr for X3 (NOW); Urgent. Start 16:03 01/24/2017 Debbie Randolph RAsim, Continued Upon Transfer 22:47 01/24/2017 Rhina Del Valle RAriela. Medication Administered: DOPAMINE [IV DRIP], Dose: 2 mcg Drip IV, Rate: 5.1 mL/hr, Dispensed: 250 mL bag, Site: #1 right wrist. Medication Ordered: DOPamine Drip IV : 2mcg/kg/min (HIGH ALERT MEDICATION, NOW); Routine. Start 20:10 01/24/2017 Rhina Del Valle RAsim, Stop 21:50 01/24/2017 Rhina Del aVlle R.N. Medication Administered: IV NS (SALINE), Dose: IV Fluids, Rate: 200 mL/hr, Dispensed: 1000 mL bag, Site: #1 right wrist. Medication Ordered: IV NS : initial bolus none -, then 200 mL/hr for 4h (NOW); Urgent. Start 21:30 01/24/2017 Esther Bragg R.N., Continued Upon Disposition 22:47 01/24/2017 Rhina Del Valle R.N. Medication Administered: KCL [IVPB] (POTASSIUM CHLORIDE), Dose: 20 meq IVPB over 2 hour(s), Rate: 50 mL/hr, Dispensed: 100 mL bag, Site: #2 left AC. Medication Ordered: KCl IV 20 meq/100mL (Run no faster than 10 units/hr, HIGH ALERT MEDICATION, NOW, Run no faster than 10 mEq/hr). Start 21:31 01/24/2017 Esther Bragg R.N., Continued Upon Transfer 22:47 01/24/2017 Rhina Del Valle RSimranN. Medication Administered: IV NS (SALINE), Dose: IV Fluids over 5 hour(s), Rate: 200 mL/hr, Dispensed: 1000 mL bag, Site: #2 left AC. Medication Ordered: IV NS : initial bolus none -, then 200 mL/hr for 4h (NOW); Urgent.
== END 2017-01-24 22:50 | disposition short-term general hospital (02) ==
LOC: ED SRH 12:20
DX: I95.89 Other hypotension (principal); E86.0 Dehydration; I50.9 Heart failure, unspecified; E87.6 Hypokalemia; R19.7 Diarrhea, unspecified; I48.91 Unspecified atrial fibrillation; F17.210 Nicotine dependence, cigarettes, uncomplicated; Z79.01 Long term (current) use of anticoagulants; Z79.899 Other long term (current) drug therapy; Z88.0 Allergy status to penicillin
CPT/HCPCS: 83475; 90004; 90065; 90074; 90100; 90469; 91320; 91400; 91643; 92031; 92235; 92530; 93020; 93140; 94001; 94060; 95059

== ENCOUNTER 2017-05-21 20:00 | Emergency (ER) | payer OTHER ==
--- NOTE | 2017-05-21 20:46 | DIAGNOSTIC IMAGING REPORT ---
PROCEDURE: XR CHEST 1 VIEW INDICATION: SHORTNESS OF BREATH TECHNIQUE: Portable AP view (2034 hours). COMPARISON: Compared to chest x-ray on 01/24/2017 and 03/31/2016. FINDINGS: Allowing for overlying wires and electrodes, findings suggest moderate parenchymal changes at the left lung base with mild parenchymal changes in the right upper and lower lung. Left subclavian pacemaker/defibrillator. Moderate cardiomegaly with congestion. Mediastinum is normal. Thorax is normal. are clear. IMPRESSION: 1. Mild to moderate increased parenchymal changes in the lung suspicious for pneumonia (e.g., aspiration, bacterial). 2. Moderate cardiomegaly with congestion. Consider superimposed mild congestive heart failure. 3. Left subclavian pacemaker/defibrillator. 4. Findings discussed with Dr. Long Gomez.
--- NOTE | 2017-05-21 21:32 | ED ORDER SUMMARY ---
..... Patient: ODILON RYAN OrderSheet [facility] VisitID: [id number] [address] [place] [address] 76y, F Registration Date/Time: 05/21/2017 ORDER SHEET Weight: 61.6 kg (stated) Allergies: Penicillins, Vancomycin GENERAL ORDERS: Chest 1V Urgent (20:05/21/2017 Ashley MCCABE) (Ack 20:23 AMcQuoid ER Tech1) (20:32 HSoule) Deployment Engineer (Continuous) (20:05/21/2017 Ashley MCCABE) (20:22 AMcQuoid ER Tech1) UA-Culture if indicated Urgent (20:05/21/2017 Ashley MCCABE) (Ack 20:23 AMcQuoid ER Tech1) (20:58 LAbe R.N.) PT with INR Urgent (20:05/21/2017 Ashley MCCABE) (Ack 20:23 AMcQuoid ER Tech1) (20:58 LAbe R.N.) PTT Urgent (20:05/21/2017 Ashley MCCABE) (Ack 20:23 AMcQuoid ER Tech1) (20:58 LAbe R.N.) Cardiac Panel Stat (20:05/21/2017 Ashley MCCABE) (Ack 20:23 AMcQuoid ER Tech1) (20:58 LAbe R.N.) BNP Urgent (20:05/21/2017 Ashley MCCABE) (Ack 20:23 AMcQuoid ER Tech1) (20:58 LAbe R.N.) Urine Drug Screen Urgent (20:05/21/2017 Ashley MCCABE) (Ack 20:23 AMcQuoid ER Tech1) (20:58 LAbe R.N.) TSH Urgent (20:05/21/2017 Ashley MCCABE) (Ack 20:23 AMcQuoid ER Tech1) (20:58 LAbe R.N.) Ethyl Alcohol Urgent (20:05/21/2017 Ashley MCCABE) (Ack 20:23 AMcQuoid ER Tech1) (20:58 LAbe R.N.) D-Dimer Urgent (20:18 05/21/2017 Ashley MCCABE) (Ack 20:23 AMcQuoid ER Tech1) (20:58 LAbe R.N.) Oxygen (2 L/min) (NC) (20:18 05/21/2017 Ashley MCCABE) (20:22 AMcQuoid ER Tech1) Pulse oximeter (20:18 05/21/2017 Ashley MCCABE) (20:22 AMcQuoid ER Tech1) EKG - ER Stat (20:18 05/21/2017 Ashley MCCABE) (20:22 AMcQuoid ER Tech1) Digoxin Level Urgent (20:25 05/21/2017 Ashley MCCABE) (Ack 20:31 AMcQuoid ER Tech1) (20:58 LAbe R.N.) Lactate, Serum Urgent (20:25 05/21/2017 Ashley MCCABE) (Ack 20:31 AMcQuoid ER Tech1) (20:58 LAbe R.N.) PCT (Procalcitonin) Urgent (20:25 05/21/2017 Ashley MCCABE) (Ack 20:31 AMcQuoid ER Tech1) (20:58 LAbe R.N.) - (Reduce IV to 100 per hour.) (20:46 05/21/2017 Ashley MCCABE) (20:58 LAbe R.N.) Blood Culture (No) (N/A) Urgent (20:46 05/21/2017 Ashley MCCABE) (Ack 20:50 AMcQuoid ER Tech1) (20:58 LAbe R.N.) CT Head wo Cont Urgent (20:51 05/21/2017 Ashley MCCABE) (Ack 20:54 AMcQuoid ER Tech1) (21:51 Nedra) Chest 1V Urgent (01:47 05/22/2017 AMcQuoid ER Tech1 per protocol) (Ack 1:49 AMcQuoid ER Tech1) (1:57 RFay) ABG (G) Urgent (02:49 05/22/2017 AMcQuoid ER Tech1 verbal order read back to Lucila MCCABE) (2:50 AMcQuoid ER Tech1) MEDICATION ORDERS: Aspirin PO 325 mg (NOW) (22:21 05/21/2017 Ashley MCCABE) (22:32 LAbe R.N.) NOREpinephrine Drip IV : 0.5-12 mcg/min (HIGH ALERT MEDICATION, NOW) (01:30 05/22/2017 Cassandra R.N. verbal order read back to Lucila MCCABE) (1:33 KPage-Bonilla R.N.) IV FLUIDS: IV NS : initial bolus 500 mL (1000 mL/hr), then 125 mL/hr for 4h (NOW); Routine (20:17 05/21/2017 Ashley MCCABE) (Ack 20:31 HSoule) (20:49 LAbe R.N.) IV Saline Lock (20:50 05/21/2017 LAbe R.N. per protocol) (Ack 20:50 LAbe R.N.) Rocephin IV 2 gm/50mL (NOW) (21:17 05/21/2017 Ashley MCCABE) (Ack 21:19 HSoule) (21:24 LAbe R.N.) Zithromax IV 500 mg/250 mL (NOW) (22:06 05/21/2017 Ashley MCCABE) (Ack 22:08 LAbe R.N.) (22:28 LAbe R.N.) IV NS : initial bolus 500 mL (1000 mL/hr), then 1000 mL/hr (NOW) (01:39 05/22/2017 Albertina-Bonilla R.N. verbal order read back to Lucila MCCABE) (1:40 KPahannah-Bonilla R.N.) DOBUTamine Drip IV : 2 mcg/kg/min (HIGH ALERT MEDICATION, NOW) (vo to give to RN EMS for transport in the event needed) (02:17 05/22/2017 Cassandra R.N. verbal order read back to Lucila MCCABE) (2:20 KPahannah-Bonilla R.N.) ORDER SHEET NOTES: [Electronically signed by Kelly Wilhelm MD (06:40 05/22/2017)] [Electronically signed by Reji Lazo R.N. (18:03 05/24/2017)] [Electronically locked/signed by Reji Lazo R.N. (18:03 05/24/2017)]
--- NOTE | 2017-05-21 21:32 | ED NURSING NOTES ---
Clinical Report - Nurses [facility] [address] [place] [address] 05/21/2017 20:01 Patient: ODILON RYAN TRIAGE Triage time 2000. Chief Complaint: CONFUSED. Alert. No acute distress. CARLA COMA SCORE: [place] Coma Scale: 14- eyes open spontaneously (4); best verbal response- disoriented (4); best motor response- obeys commands (6). --20:21 Ana Maria Lafleur R.N. 20:08 05/21/17. BP: 96/74. HR: 52. RR: 20. O2 saturation: 94%. Temp: 98.7 F. Pain level now 0/10. --20:21 Ana Maria Lafleur R.N. Weight: 61.6 kg stated. Height/Length: 62 inches Per Patient. BMI: 24.9. --20:08 Ana Maria Lafleur R.N. Medications Ferrous Sulfate Oral 325 mg, 2x a day. --20:11 Ana Maria Lafleur R.N. Digoxin Oral (Tablet 125 mcg) 1 tablet, every other day. --20:11 Ana Maria Lafleur R.N. Gabapentin Oral (Capsule 300 mg), 3x a day. --20:12 Ana Maria Lafleur R.N. Ondansetron Oral 4 mg, 3x a day. --20:12 Ana Maria Lafleur R.N. Lisinopril Oral 2.5 mg, daily. --20:12 Ana Maria Lafleur R.N. Atorvastatin Calcium Oral 20 mg, at bedtime. --20:12 Ana Maria Lafleur R.N. Sertraline HCl Oral 12.5mg, daily. --20:12 Ana Maria Lafleur R.N. Potassium Chloride Oral 10 meq, 2x a day. --20:12 Ana Maria Lafleur R.N. Warfarin Sodium Oral (Tablet 2.5 mg) 1 tablet, daily. --20:13 Ana Maria Lafleur R.N. Torsemide Oral (Tablet 20 mg), 2x a day. --20:14 Ana Maria Lafleur R.N. OxyCODONE HCl Oral 7.5. --20:16 Ana Maria Lafleur R.N. Allergies Penicillins. Vancomycin. --20:04 Ana Maria Lafleur R.N. Medication/allergy information source: the patient and patient's family. --20:21 Ana Maria Lafleur R.N. History Arrived by EMS. Historian: patient. This started today. ( daughter reports confusion over last day, falls asleep too easily, trouble getting around, tremors, some blood in stool while EMS picked up.). She has had weakness (since 1 days ago). She has had incontinence. Treatment MEMORY CARE DIRECTOR: None. SOCIAL HX: Light tobacco smoker (cigarette)- less than 1/2 a pack per day. No alcohol use or drug use. No infectious disease exposure. ABUSE ASSESSMENT: No report of abuse. SELF HARM ASSESSMENT: A self harm assessment was performed. The patient answered "no" to the question "Do you have thoughts of harming or killing yourself?" and "Are you here because you tried to hurt yourself?". NUTRITIONAL RISK ASSESSMENT: The nutritional risk assessment revealed no deficiencies. FUNCTIONAL ASSESSMENT: Functional assessment: no impairments noted. LEARNING NEEDS ASSESSMENT: The learning needs assessment revealed no barriers. FALL RISK ASSESSMENT: Fall risk assessment completed. Risk factors identified include patient age greater than 65 years and impairment of cognition. Fall interventions initiated. Side rails up x2. Brakes on Bed in low position. Patient visible from nurses' station. Call light in reach of patient. Instructed not to get up without assistance. SKIN INTEGRITY ASSESSMENT: Skin integrity risk assessment completed. No skin integrity risk identified. --20:21 Ana Maria Lafleur R.N. PROBLEMS: Hypokalemia. Atrial Fibrillation. C. Difficile Colitis. Diarrhea. Epistaxis. Spinal Cord Compression. Herniated Disk. Heart Disease. Congestive Heart Failure. Mitral regurgitation. Hypotension. Anemia. Dehydration. Cancer. Hypertension. Coronary Artery Disease. Immunizations. --20:17 Ana Maria Lafleur R.N. ADDITIONAL SURGERIES: Back Surgery. Cataract Surgery. Defibrillator placed 02/15/12. Hysterectomy. --20:17 Ana Maria Lafleur R.N. Interventions ID band on patient. To treatment room. --20:21 Ana Maria Lafleur R.N. PHYSICAL ASSESSMENT To room via wheelchair. Patient gowned. GENERAL / NEURO / PSYCH: Alert. Appears in no acute distress. The patient is disoriented to place. Speech within normal limits. RESPIRATORY: Respirations not labored. SKIN: Skin is warm and dry. --20:27 Ana Maria Lafleur R.N. RESPIRATORY: Respirations not labored. CVS: Cardiac rhythm: right bundle branch block; atrial pacing. --20:33 Ana Maria Lafleur R.N. NURSING PROGRESS NOTES Patient ID band checked for patient name and birthdate: patient confirmed. Blood samples drawn from the right forearm peripheral IV site with Vacutainer by nurse ; labeled in presence of the patient and sent to lab: rainbow set: cardiac enzymes (1st set). Line flushed with 10 mL normal saline post blood draw. --20:34 Mary Arnett 8 fr in/out catheterization. Reason for indwelling catheter: patient's decreased level of consciousness. During procedure hand hygiene observed and sterile equipment and aseptic technique used. Return of 50 mL yellow-colored clear urine. She tolerated procedure well. --20:35 Mary Arnett Hemoccult test positive. boiler control technician check passed. Provider notified (POC test reference range: negative). --20:35 Mary Arnett 20:12. EKG was performed by a tech and shown to the ED physician. --20:42 McQuoid, Debra, ER Tech1 20:22 05/21/2017 Site #1 started via IV in the right hand with an 20g angiocath, with aseptic technique and good blood return; one attempt. Blood drawn: rainbow set. Labeled in the presence of the patient and sent to the lab. Saline lock flushed with 5 mL saline (placed by Reji TRUONG). --20:48 Ana Maria Lafleur R.N. 20:44 05/21/2017 Site #2 started via IV in the left forearm with an 20g angiocath, with aseptic technique and good blood return; one attempt. Blood drawn. Labeled in the presence of the patient and sent to the lab. Saline lock flushed with 5 mL saline (lactic acid drawn). --20:49 Ana Maria Lafleur R.N. 20:49 05/21/2017 Started bag #1 500 mL IV Fluids IV NS (Saline); at 1000 mL/hr via site #1 via IV pump. Allergies verified and confirmed 5 rights. IV patency established. IV site checked: no pain, redness, or swelling. IV flushed thoroughly pre- and post-medication administration. --20:49 Ana Maria Lafleur R.N. Monitoring of patient in place. Portable chest x-ray. Patient gowned. Head of bed elevated. In/out catheterization. Reason for indwelling catheter: patient's decreased level of consciousness. During procedure hand hygiene observed and sterile equipment and aseptic technique used. Return of yellow-colored urine. She tolerated procedure well. Urine collected. Hemoccult test positive. boiler control technician check passed. (POC test reference range: negative). Two patient identifiers checked. Call light placed in reach. Side rails up x 2. Bed placed in lowest position. Brakes of bed on. Patient ready for evaluation. --20:57 Ana Maria Lafleur R.N. Checked patient name and birthdate. Blood samples drawn from the left forearm peripheral IV site: blood culture (1st set). Line flushed with 5 mL normal saline post blood draw. --21:05 Ana Maria Lafleur R.N. 21:05 05/21/17. BP: 96/41. HR: 55. RR: 24. O2 saturation: 98% on nasal cannula at 2 liters/minute. --21:06 Ana Maria Lafleur R.N. 21:11 05/21/17. BP: 112/51. HR: 54. RR: 22. O2 saturation: 93% on nasal cannula at 1 liters/minute. --21:13 Ana Maria Lafleur R.N. Cardiac rhythm: right bundle branch block; atrial pacing. ( patient falls asleep easily, then easily aroused, mildly apneic when sleeping). --21:13 Ana Maria Lafleur R.N. 21:24 05/21/2017 Started 2 gm of Rocephin (CefTRIAXone Sodium) IVPB in bag #1 50 mL; at 100 mL/hr over 30 minute(s) via site #1; Allergies verified and confirmed 5 rights. IV patency established. IV site checked: no pain, redness, or swelling. IV flushed thoroughly pre- and post-medication administration. --21:24 Ana Maria Lafleur R.N. 20:45 05/21/17. BP: 97/45. HR: 55. RR: 18. O2 saturation: 89% on room air. --21:36 Ana Maria Lafleur R.N. Patient returned from CT by stretcher with tech. (21:49). --21:50 Ana Maria Lafleur R.N. 21:49 05/21/17. BP: 100/70. HR: 54. RR: 22. O2 saturation: 97%. --21:50 Ana Maria Lafleur R.N. Reassessment after oxygen and fluids administered and medication administered. GENERAL / NEURO / PSYCH: The patient is disoriented. Patient is calm and cooperative. RESPIRATORY: No respiratory distress. SKIN: Skin is warm and dry. ( Family at BS with hospitalist). --21:55 Ana Maria Lafleur R.N. Critical value relayed to ED by 21:57 Lab. Critical value received by 21:58 Ana Maria RN. Lactate level: 2.2. Critical value read back. Provider notifed of critical value (Dr. Gomez). Orders were not received. ED physician notified. --21:59 Ana Maria Lafleur R.N. 21:54 05/21/2017 Rocephin IVPB Discontinued: bag #1 completed upon admission. Total amount infused: 50 mL. IV patency established. IV site checked: no pain, redness, or swelling. IV flushed thoroughly. --22:04 Ana Maria Lafleur R.N. 22:28 05/21/2017 Started 500 mg of Zithromax (Azithromycin) IVPB in bag #1 250 mL; at 250 mL/hr over 30 minute(s) via site #1 via IV pump. Allergies verified and confirmed 5 rights. IV patency established. IV site checked: no pain, redness, or swelling. IV flushed thoroughly pre- and post-medication administration. --22:28 Ana Maria Lafleur R.N. 22:32 05/21/2017 Aspirin PO 324 mg given. Allergies verified and confirmed 5 rights. --22:32 Ana Maria Lafleur R.N. 22:34 05/21/17. BP: 103/42. HR: 51. RR: 19. O2 saturation: 99%. Temp: 97.8 F. Pain level now 8/10. --22:37 Ana Maria Lafleur R.N. 23:24 05/21/2017 Site #1 removed upon admission. Pressure dressing applied (site infiltrated.). --23:29 Ana Maria Lafleur R.N. 23:29 05/21/2017 Zithromax IVPB Discontinued: bag #1 completed upon admission. Total amount infused: 250 mL. IV patency established. IV site checked: no pain, redness, or swelling. IV flushed thoroughly. --23:29 Ana Maria Lafleur R.N. 23:30 05/21/17. BP: 101/81. HR: 53. RR: 18. O2 saturation: 98%. --23:32 Ana Maria Lafleur R.N. Care transferred and report given. ( transferred care of patient to Cornelio TRUONG). --23:32 nAa Maria Lafleur R.N. 23:42 Mary at [facility] contacted, she stated that the patient could be transferred to [facility]. --23:43 McQuoid, Debra, ER Tech1 00:35 05/22/17. BP: 74/52. --01:08 McQuoid, Debra, ER Tech1 00:45 05/22/17. BP: 94/41. --01:09 McQuoid, Debra, ER Tech1 00:53 05/22/17. BP: 97/28. --01:09 McQuoid, Debra, ER Tech1 00:55 05/22/17. BP: 94/44. --01:10 McQuoid, Debra, ER Tech1 EKG time: (00:56). EKG was performed by a tech and shown to the ED physician. --01:19 Divya Armstrong [id number] 01:28 May 22 2017Jul 2016. ED physician notified about patient's status. ( assumed care of pt- pt found hypotensive, hr in the 50's, pt woke to name and Dr Wilhelm called to bedside as well as admission discharge rn. pt moved to trauma room 1, will prepare for a central line. EMS transport at bedside, plan was for pt to go to [facility], pt will remain in the ED for higher care prior to transfer.). --01:30 Reji Lazo R.N. 00:36 05/21/2017 Started bag #1 500 mL IV Fluids IV NS (Saline); at 1000 mL/hr via site #2. Allergies verified and confirmed 5 rights. IV patency established. IV site checked: no pain, redness, or swelling. IV flushed thoroughly pre- and post-medication administration (pressure bag). --01:40 Reji Lazo R.N. 00:36 05/22/17. ( vo from Dr Wilhelm to give 500ns bolus). --01:41 Reji Lazo R.N. 01:26 05/22/2017 Started 2 mcg of NOREPINEPHRINE Drip IV in bag #1 250 mL; at 2 mcg/min via site #2 via IV pump. Allergies verified and confirmed 5 rights. IV patency established. IV site checked: no pain, redness, or swelling. IV flushed thoroughly pre- and post-medication administration. --01:33 Reji Lazo R.N. ( levophed mixed 4mg/250ml NS per vo , mix checked with private household worker). --01:33 Reji Lazo R.N. ( cont at bedside attempting central line. [facility] contacted, per MD vasquez reports pt too sick for them .). --01:34 Reji Lazo R.N. 01:41 05/22/2017 NOREPINEPHRINE Drip IV via IV site #2 Rate Changed: increased to 3 mcg/min via IV pump. IV patency established. IV site checked: no pain, redness, or swelling. IV flushed thoroughly. Confirmed 5 Rights. --01:52 Reji Lazo R.N. 01:44 05/22/2017 Site #3 started via central line in the right subclavian, with aseptic technique and good blood return; two attempts. Saline lock flushed (placed by ). --01:55 Reji Lazo R.N. 01:48 05/22/2017 NOREPINEPHRINE Drip IV via IV site #2 Rate Changed: increased to 4 mcg/min via IV pump. IV patency established. IV site checked: no pain, redness, or swelling. IV flushed thoroughly. Confirmed 5 Rights. --01:53 Reji Lazo R.N. ( xray at bedside checking placement of right subclavian cl-). --01:54 Reji Lazo R.N. ( ok to use central line per ). --01:55 Reji Lazo R.N. 01:59 05/22/2017 NOREPINEPHRINE Drip IV via IV site #2 Rate Changed: increased to 5 mcg/min via IV pump. IV patency established. IV site checked: no pain, redness, or swelling. IV flushed thoroughly. Confirmed 5 Rights. --01:59 Reji Lazo R.N. 02:19 05/22/2017 Started of Dobutamine (DOBUTamine HCl) Drip IV; at 2 mcg/kg/min via site #3; (given to RN EMS if needed for transport). --02:20 Reji Lazo R.N. ( RN EMS requested dobutamine for transit in the event needed, vo- ok per Dr Wilhelm). --02:20 Reji Lazo R.N. 02:20 05/22/17. BP: 138/40. HR: 56. RR: 21. O2 saturation: 100%. --02:24 Reji Lazo R.N. 01:00. ( Helped ER Doctor with set up for Central line placement). --04:[address] [facility]. DISPOSITION / DISCHARGE Transported via stretcher by nurse with monitor, IV, O2 and emergency medications. Report was given to a nurse via a phone call. Report included patient's care, treatment, medications, reviewed medication reconcilliation, and condition (including any recent changes or anticipated changes). All questions were answered. Report was acknowledged and care was transferred. (Kristie [employer] COMMERCE DEVELOPER). --02:46 Mary Arnett Departure time: 02:46 May 22 2017. Transferred to [facility]. Summary of care provided to transport team and transfer facility. Transported via stretcher by EMS with monitor, IV, O2 and emergency medications. --05:52 Mary Arnett. Locked/Released at 05/24/2017 18:03 by Reji Lazo R.N.
--- NOTE | 2017-05-21 21:32 | ED CLINICAL REPORT ---
Clinical Report - Physicians/Mid Levels [facility] [address] [place] [address] 05/21/2017 20:01 Patient: ODILON RYAN Time Seen: 20:14 May 21 2017. Arrived- By ambulance. Historian- patient and EMS personnel. CPT: Critical care < 74 min plus (#[id number]) and 30-74 min plus (#[id number]). EKG interpretation (#[id number]). HISTORY OF PRESENT ILLNESS Chief Complaint: CHANGED MENTAL STATUS. Lehtargic according to family. This started today and is still present. The patient is described as having decreased responsiveness. (Pt not clear about medications she takes and says her family gives them to her.). The patient was found unresponsive. The patient has had weakness. She has had difficulty walking. No recent fall. Usually is alert and oriented X3 and usually has normal mobility. Similar symptoms previously: None. Recent medical care: Not recently seen/assessed. REVIEW OF SYSTEMS No fever, headache, head injury, chest pain or difficulty breathing. No cough, sputum production, sore throat, abdominal pain or nausea. No diarrhea, black stools, difficulty with urination, skin rash or vomiting. No bloody stools. Denies pain , dyspnea , N/V/D. Family saw some blood in stool. All systems otherwise negative, except as recorded above. PAST HISTORY ( Atrial Fibrillation. C. Difficile Colitis. Diarrhea. Epistaxis. Spinal Cord Compression. Herniated Disk. Heart Disease. Congestive Heart Failure. Mitral regurgitation. Hypotension. Anemia. Dehydration. Cancer. Hypertension. Coronary Artery Disease. Renal insufficiency Additional Surgeries: 5 stents placed in Sep 2011. Back Surgery. Cataract Surgery. Defibrillator placed 02/15/12. Hysterectomy.). Medications: OxyCODONE HCl Oral 7.5. Torsemide Oral (Tablet 20 mg), 2x a day. Warfarin Sodium Oral (Tablet 2.5 mg) 1 tablet, daily. Potassium Chloride Oral 10 meq, 2x a day. Sertraline HCl Oral 12.5mg, daily. Atorvastatin Calcium Oral 20 mg, at bedtime. Lisinopril Oral 2.5 mg, daily. Ondansetron Oral 4 mg, 3x a day. Gabapentin Oral (Capsule 300 mg), 3x a day. Digoxin Oral (Tablet 125 mcg) 1 tablet, every other day. Ferrous Sulfate Oral 325 mg, 2x a day. Allergies: Penicillins. Vancomycin. SOCIAL HISTORY Light tobacco smoker (cigarette)- less than 1/2 a pack per day. No alcohol use or drug use. ADDITIONAL NOTES The nursing notes have been reviewed. PHYSICAL EXAM Vital Signs: 05/21/2017 20:08 BP: 96/74. HR: 52. RR: 20. O2 saturation: 94%. Temp: 98.7 F. Appearance: No acute distress. Lethargic. Head: Head atraumatic. Eyes: Pupils equal, round and reactive to light. Pupillary exam: Right pupil 3mm, constricted and reactive to light directly. Left pupil: 3mm, constricted and reactive to light directly. ENT: Normal ENT inspection. Airway intact. Dry mucous membranes present. Pharynx normal. Neck: Normal inspection. Neck supple. No meningeal signs or carotid bruit. CVS: Normal heart rate and rhythm. Heart sounds normal. Pulses normal. No cardiac murmur. Respiratory: No respiratory distress. Abdomen: Soft and nontender. Back: Normal inspection. Rectal: Strongly heme-positive stool; hemoccult water quality manager check passed. (POC test reference range: negative). Skin: Skin warm. Normal skin color. No rash. Extremities: Extremities exhibit normal ROM. No calf tenderness. No lower extremity edema. Neuro: Oriented X 3. Moderately altered mental status: lethargic. Patient slow to respond. Eyes open spontaneously. Best verbal response: oriented X 3. Best motor response: obeys commands. Mood/affect normal. Dysarthria. Cranial nerves normal (as tested). No cerebellar findings. No motor deficit. No sensory deficit. Reflexes normal. (Periodic muscle twitching). LABS, X-RAYS, AND EKG EKG: EKG time: (2011). Atrioventricular block present. RBBB. Non-specific ST segment / T wave abnormalities. Prior EKG unavailable. The study has been interpreted contemporaneously by me. The study has been independently viewed by me. The EKG appears to be a good tracing. I agree with and confirm the computer reading of the EKG. EKG #2: EKG time: (55). Rate: 56. Narrow-complex bradycardia. Sinus bradycardia. Normal P waves. First-degree atrioventricular block. RBBB. Abnormal axis. Normal QT. Non-specific ST segment / T wave abnormalities. EKG unchanged when compared with prior EKG. The study has been interpreted contemporaneously by me. The study has been independently viewed by me. The EKG appears to be a good tracing. I agree with and confirm the computer reading of the EKG. Rhythm Strip #1: Time: (0000). Rate= 57. Sinus bradycardia. Regular rhythm. Narrow QRS complexes. No ectopy. Conduction normal. Normal ST segments and T waves. Chest X-ray: Infiltrate in the right upper lobe and right lower lobe and left lower lobe. Consistent with pneumonia and CHF. Normal heart size. Mediastinum normal. Great vessels normal. Soft tissues normal. No fracture. No bony lesion present. Views: AP (portable). Technique: good. The X-rays were independently viewed by me, interpreted by the radiologist and contemporaneously by me and discussed with the radiologist. A comparison with prior films reveals that the findings are new. Chest X-ray #2: Infiltrate present (Worsened bilateral infiltrates since previous x-ray; consistent with acute pulmonary edema and congestive heart failure.). Cardiomegaly. Mediastinum normal. Great vessels normal. Soft tissues normal. No fracture. No bony lesion present. (Central line in good placement in the right subclavian artery.). Views: AP (portable). Technique: good. The X-rays were independently viewed by me and interpreted contemporaneously by me. A comparison with prior films reveals that the findings have worsened. CT Head: White matter disease is present. No acute changes. Head CT performed without contrast. The study was independently viewed by me, interpreted by the radiologist and discussed with the radiologist. Laboratory Tests: UA-Culture if indicated: (FELTON: 05/21/2017 20:25) ( MsgRcvd 05/21/2017 20:52) Final results Test Result Flag Units (Reference) URINE COLOR YELLOW URINE APPEARANCE SL CLOUDY URINE GLUCOSE NEGATIVE (NEGATIVE) URINE BILIRUBIN NEGATIVE (NEGATIVE) URINE KETONE NEGATIVE (NEGATIVE) URINE SPECIFIC GRAVITY 1.015 (1.010-1.030) URINE PH 5.5 (5.0-8.0) URINE PROTEIN NEGATIVE (NEGATIVE) URINE UROBILINOGEN 0.2 EU/dL (0.2-1.0) URINE NITRITE NEGATIVE (NEGATIVE) URINE BLOOD 2+ (NEGATIVE) URINE LEUK ESTERASE POSITIVE (NEGATIVE) URINE RBC NONE SEEN rbc/hpf (0-1) URINE WBC 10-15 wbc/hpf (0-1) URINE EPITHELIAL CELLS 0-1 EPI/hpf (0-5) URINE BACTERIA MODERATE (2+ TO 3+) (NONE SEEN) URINE COMMENT CULTURE INDICATED 75-100 Hyaline Casts/l.p.f.URINE CULTURES ARE SET-UP BASED ON THE FOLLOWING CRITERIA:POSITIVE NITRITEPOSITIVE LEUKOCYTE ESTERASEGREATER THAN 10 WHITE BLOOD CELLSMODERATE (2+) OR GREATER BACTERIA CBC w Diff: (FELTON: 05/21/2017 20:25) ( MsgRcvd 05/21/2017 20:38) Final results Test Result Flag Units (Reference) WHITE BLOOD COUNT 13.7 H K/uL (4.5-11.5) RED BLOOD COUNT 3.03 L M/uL (4.00-5.20) HEMOGLOBIN 9.5 L gm/dL (12.0-16.0) HEMATOCRIT 28.2 L % (36.0-46.0) MEAN CELL VOLUME 93 fL (80-100) MEAN CORPUSCULAR HGB 31 pg (26-34) MEAN CORPUSCULAR HGB CONC 34 g/dL (31-37) RED CELL DISTRIBUTION WIDTH 15.6 H % (11.6-14.8) PLATELET COUNT 200 K/uL (150-400) NEUTROPHIL % 76.5 H % (50-75) LYMPH % 15.6 L % (25-40) MONO % 5.9 % (3-14) EOSINOPHIL % 1.7 % (0-4) BASOPHIL % 0.3 % (0-2) PT with INR: (FELTON: 05/21/2017 20:25) ( MsgRcvd 05/21/2017 21:04) Final results Test Result Flag Units (Reference) INR 2.5 H (0.8-1.2) Low Intensity Therapy: INR 1.5-2.0 PT range 18.5-23.1Mod.Intensity Therapy: INR 2.0-3.0 PT range 23.1-31.5High Intensity Therapy: INR 2.5-3.5 PT range 27.4-35.5High Intensity Therapy 2: INR 3.0-4.0 PT range 31.5-39.3 APTT 50 H SECONDS (24-34) D-DIMER QUANTITATIVE < 0.27 L ug/mLFEU (0.27-0.52) The primary value of this quantitative assay relates toits negative predictive value (i.e. exclusion) of pulmonaryembolism/deep vein thrombosis/DIC.Elevated levels of d-dimer may also occur with:, age, cancer, inflammation, liver disease,post-op, infection, hematoma, coronary disease, peripheralarteriopathy, bleeding disorders and thrombolytic treatment.Results should be correlated with other clinical andradiological data.Testing Methodology: Latex Immunoassay Urine Drug Screen: (FELTON: 05/21/2017 20:25) ( MsgRcvd 05/21/2017 21:06) Final results Test Result Flag Units (Reference) AMPHETAMINE/METHAMPHETAMINE NEGATIVE (NEGATIVE) BARBITURATE NEGATIVE (NEGATIVE) BENZODIAZEPINE POSITIVE H (NEGATIVE) CANNABINOID NEGATIVE (NEGATIVE) COCAINE NEGATIVE (NEGATIVE) ECSTASY NEGATIVE (NEGATIVE) METHADONE NEGATIVE (NEGATIVE) OPIATE POSITIVE H (NEGATIVE) The urine drug screen is a qualitative screening test fordrug overdose and abuse. All screen results should beconsidered as presumptive.Drugs screened for are as follows:BenzodiazepinesCocaineAmphetamines/MetamphetaminesTHC (Tetrahydrocannabinol)OpiatesBarbituratesEcstasyMethadonePositive results are unconfirmed. For confirmation, notifythe lab for the specimen to be sent to the reference lab.All confirmations must be performed by a differentmethodology.The ingestion of natural herbal and plant productscontaining Ephedra/Ephedra metabolites can produce in urineone or more substances capable of cross reacting withamphetamine/methamphetamine immunoassays. These testsprovide a preliminary result only. A more specificalternative chemical method must be used to obtain aconfirmed analytical result. BNP: (FELTON: 05/21/2017 20:25) ( MsgRcvd 05/21/2017 21:16) Final results Test Result Flag Units (Reference) B-TYPE NATRIURETIC PEPTIDE 770 H pg/ml (5-100) Ethyl Alcohol: (FELTON: 05/21/2017 20:25) ( MsgRcvd 05/21/2017 21:06) Final results Test Result Flag Units (Reference) ETHYL ALCOHOL < 3 L mg/dL (3-10) THYROID STIMULATING HORMONE 0.863 uIU/mL (0.30-3.74) . Pulse Oximetry: 05/21/2017 20:08 O2 saturation: 94%. (FIO2 - room air). Interpretation: normal. PROGRESS AND PROCEDURES Central Line Placement: A central line was placed in the right subclavian vein. Consent precluded by urgency of clinical situation. Hand hygiene observed, sterile barrier precautions adhered to (cap, mask, gown, gloves and large sterile sheet) and chlorhexidine skin antisepsis used. Local anesthetic infiltrated. Triple lumen central line placed using ultrasound guidance with sterile technique and Seldinger technique. Good blood return observed. Catheter was secured. Antibiotic ointment applied. The patient was clinically stable following the procedure. Post-procedure X-ray showed no pneumothorax and good catheter tip position. Course of Care: IV NS : Reduced due to CHF. Rocephin 2g IV for UTI Zithromax 500 mg IV ASA 325 mg po Patient has elevated troponin/NSTEMI, GI bleed with anemia, CHF, UTI & pneumonia with sepsis, as well as ALOC. Initial EKG shows no STEMI. Melonie note: This patient was signed out to me at 2300 by the off going emergency physician. At the time of sign out, the patient had been stable, and was set up for transfer to [facility], to the cardiac telemetry floor. She had been diagnosed with multiple acute issues including UTI, bilateral pneumonia, GI bleed with anemia, acute NM, chronic CHF, and probable sepsis. The patient had been treated with IV Rocephin and Zithromax already, and had been given 500 cc of normal saline IV. The transfer team did arrive around midnight to hand picker the patient, and at that time, I was notified by the nurse that the patient was hypotensive I did go examine the patient and noted that patient had had several readings within the last 30 minutes of systolic blood pressures in the 80s to 90s. This did appear to be a change from the blood pressures the patient had had throughout her stay thus far. Patient was arousable and did state that she was not feeling any different at this time than she had been. Repeat EKG at 0056 did not show a STEMI. I did give the patient another 500 cc of normal saline as I did suspect septic shock, though I did consider that the patient also has a history of CHF. As the patient was finishing this bolus, and she was beginning to have more audible crackles with breathing, and I did have nursing staff stop the bolus. The patient was still hypotensive with systolic blood pressures ranging in the 70s and 80s primarily, and I did feel that the patient was going to need vasopressors. Additionally, [place] did not have any critical care beds, and so I did have to restart the transfer process. We did attempt once again to get a hold of [facility]'s on-call hospitalist, but we never heard back from her, After multiple attempts to reach her. We spoke with [facility], but they stated that the patient was too complex for them to be able to manage in their intensive care unit. I did then speak with the braider setter at [facility], who did agree to accept the patient in transfer. In the meantime, I had placed a subclavian central line, and the patient was receiving levothyroid. This did immediately bring the patient's blood pressure up although her map was in the upper 50s. She did ultimately end up on a drip rate of 6 after titration. The transfer team did ask also to have a negative dobutamine hanging that this is not yet started. The patient central line had been confirmed to be in good position by the chest x-ray there was a repeat chest x-ray did also show increased bilateral infiltrates consistent with congestive heart failure. The patient had become more somnolent in the emergency department, but was at this point arousable to noxious stimuli. I did discuss the possibility of intubation with the braider setter, but he preferred that this not be done unless necessary. At this point the patient was maintaining oxygen saturation in the low to mid 90s on 4 L per nasal cannula and I did feel that she could reasonably be transported on supplemental oxygen. The patient's ABG showed the patient to be moderately acidotic, with a PO2 175 and PCO2 of 51. Patient ultimately, while critically ill, did stabilize somewhat in the emergency department and was able to be transferred. Critical care performed (Critical care time 180 minutes.). Time is exclusive of separately billable procedures. Time includes: direct patient care, patient reassessment, coordination of patient care, interpretation of data (laboratory data, pulse oximetry, arterial blood gases, chest xrays, prior electrocardiograms and cardiac output measurements), review of patient's medical records, medical consultation, family consultation regarding treatment decisions and documentation of patient care. Procedures included in critical care time: peripheral IV placement and phlebotomy. Procedures excluded from critical care time: central intravenous line placement and electrocardiography- see progress notes. The patient required critical care due to the acute impairment of vital organ systems (cardiovascular, respiratory and central nervous system) and a high probability of imminent and life threatening deterioration. Numerous emergent and urgent interventions were required to prevent sudden life threatening deterioration. Discussed case with hospitalist, (Alexx/Yang: Accepts to cards/tele floor). Reviewed test results and need for additional work-up. Agreed upon treatment plan and decision to admit. Health care provider will see patient in hospital. Discussed case with on-call health care provider, (Amber/braider setter/[place]: Accepts pt in transfer). Reviewed test results and need for additional work-up. Agreed upon treatment plan and decision to admit. Health care provider will see patient in hospital. Patient/family counseled. Old medical records ordered. Disposition: Transferred to [facility]. Condition: critical. CLINICAL IMPRESSION Occult and minor GI bleed with hematochezia. Sepsis with altered mental status and acute central nervous system failure and renal failure (requiring vasopressors). Acute moderate systolic, left ventricular congestive heart failure Acute urinary tract infection with cystitis. Moderate chronic renal failure. Acute myocardial infarction with elevated markers, EKG changes and no ST elevation (NSTEMI). Aspirin administered in ED. Possible pneumonia. (Electronically signed by Kelly Wilhelm MD 05/22/2017 6:40) Addenda for CONNORODILON Farideh VisitID: [id number] Date: 05/21/2017 05/24/2017 16:39 Faxed postive culture result of e-coli to [phone]. Spoke with RN at [facility] ICU [place] Daja Segura, aware of postive culture result. Faxed result to Attn: AMAYA Baldwin (Electronically signed by Shawn Arciniega R.N. - 05/24/2017 16:39)
--- NOTE | 2017-05-21 21:32 | ED CLINICAL REPORT ---
Clinical Report - Physicians/Mid Levels [facility] [address] [place] [address] 05/21/2017 20:01 Patient: ODILON RYAN Time Seen: 20:14 May 21 2017. Arrived- By ambulance. Historian- patient and EMS personnel. CPT: Critical care < 74 min plus (#[id number]) and 30-74 min plus (#[id number]). EKG interpretation (#[id number]). HISTORY OF PRESENT ILLNESS Chief Complaint: CHANGED MENTAL STATUS. Lehtargic according to family. This started today and is still present. The patient is described as having decreased responsiveness. (Pt not clear about medications she takes and says her family gives them to her.). The patient was found unresponsive. The patient has had weakness. She has had difficulty walking. No recent fall. Usually is alert and oriented X3 and usually has normal mobility. Similar symptoms previously: None. Recent medical care: Not recently seen/assessed. REVIEW OF SYSTEMS No fever, headache, head injury, chest pain or difficulty breathing. No cough, sputum production, sore throat, abdominal pain or nausea. No diarrhea, black stools, difficulty with urination, skin rash or vomiting. No bloody stools. Denies pain , dyspnea , N/V/D. Family saw some blood in stool. All systems otherwise negative, except as recorded above. PAST HISTORY ( Atrial Fibrillation. C. Difficile Colitis. Diarrhea. Epistaxis. Spinal Cord Compression. Herniated Disk. Heart Disease. Congestive Heart Failure. Mitral regurgitation. Hypotension. Anemia. Dehydration. Cancer. Hypertension. Coronary Artery Disease. Renal insufficiency Additional Surgeries: 5 stents placed in Sep 2011. Back Surgery. Cataract Surgery. Defibrillator placed 02/15/12. Hysterectomy.). Medications: OxyCODONE HCl Oral 7.5. Torsemide Oral (Tablet 20 mg), 2x a day. Warfarin Sodium Oral (Tablet 2.5 mg) 1 tablet, daily. Potassium Chloride Oral 10 meq, 2x a day. Sertraline HCl Oral 12.5mg, daily. Atorvastatin Calcium Oral 20 mg, at bedtime. Lisinopril Oral 2.5 mg, daily. Ondansetron Oral 4 mg, 3x a day. Gabapentin Oral (Capsule 300 mg), 3x a day. Digoxin Oral (Tablet 125 mcg) 1 tablet, every other day. Ferrous Sulfate Oral 325 mg, 2x a day. Allergies: Penicillins. Vancomycin. SOCIAL HISTORY Light tobacco smoker (cigarette)- less than 1/2 a pack per day. No alcohol use or drug use. ADDITIONAL NOTES The nursing notes have been reviewed. PHYSICAL EXAM Vital Signs: 05/21/2017 20:08 BP: 96/74. HR: 52. RR: 20. O2 saturation: 94%. Temp: 98.7 F. Appearance: No acute distress. Lethargic. Head: Head atraumatic. Eyes: Pupils equal, round and reactive to light. Pupillary exam: Right pupil 3mm, constricted and reactive to light directly. Left pupil: 3mm, constricted and reactive to light directly. ENT: Normal ENT inspection. Airway intact. Dry mucous membranes present. Pharynx normal. Neck: Normal inspection. Neck supple. No meningeal signs or carotid bruit. CVS: Normal heart rate and rhythm. Heart sounds normal. Pulses normal. No cardiac murmur. Respiratory: No respiratory distress. Abdomen: Soft and nontender. Back: Normal inspection. Rectal: Strongly heme-positive stool; hemoccult quality control expert check passed. (POC test reference range: negative). Skin: Skin warm. Normal skin color. No rash. Extremities: Extremities exhibit normal ROM. No calf tenderness. No lower extremity edema. Neuro: Oriented X 3. Moderately altered mental status: lethargic. Patient slow to respond. Eyes open spontaneously. Best verbal response: oriented X 3. Best motor response: obeys commands. Mood/affect normal. Dysarthria. Cranial nerves normal (as tested). No cerebellar findings. No motor deficit. No sensory deficit. Reflexes normal. (Periodic muscle twitching). LABS, X-RAYS, AND EKG EKG: EKG time: (2011). Atrioventricular block present. RBBB. Non-specific ST segment / T wave abnormalities. Prior EKG unavailable. The study has been interpreted contemporaneously by me. The study has been independently viewed by me. The EKG appears to be a good tracing. I agree with and confirm the computer reading of the EKG. EKG #2: EKG time: (55). Rate: 56. Narrow-complex bradycardia. Sinus bradycardia. Normal P waves. First-degree atrioventricular block. RBBB. Abnormal axis. Normal QT. Non-specific ST segment / T wave abnormalities. EKG unchanged when compared with prior EKG. The study has been interpreted contemporaneously by me. The study has been independently viewed by me. The EKG appears to be a good tracing. I agree with and confirm the computer reading of the EKG. Rhythm Strip #1: Time: (0000). Rate= 57. Sinus bradycardia. Regular rhythm. Narrow QRS complexes. No ectopy. Conduction normal. Normal ST segments and T waves. Chest X-ray: Infiltrate in the right upper lobe and right lower lobe and left lower lobe. Consistent with pneumonia and CHF. Normal heart size. Mediastinum normal. Great vessels normal. Soft tissues normal. No fracture. No bony lesion present. Views: AP (portable). Technique: good. The X-rays were independently viewed by me, interpreted by the radiologist and contemporaneously by me and discussed with the radiologist. A comparison with prior films reveals that the findings are new. Chest X-ray #2: Infiltrate present (Worsened bilateral infiltrates since previous x-ray; consistent with acute pulmonary edema and congestive heart failure.). Cardiomegaly. Mediastinum normal. Great vessels normal. Soft tissues normal. No fracture. No bony lesion present. (Central line in good placement in the right subclavian artery.). Views: AP (portable). Technique: good. The X-rays were independently viewed by me and interpreted contemporaneously by me. A comparison with prior films reveals that the findings have worsened. CT Head: White matter disease is present. No acute changes. Head CT performed without contrast. The study was independently viewed by me, interpreted by the radiologist and discussed with the radiologist. Laboratory Tests: UA-Culture if indicated: (FELTON: 05/21/2017 20:25) ( MsgRcvd 05/21/2017 20:52) Final results Test Result Flag Units (Reference) URINE COLOR YELLOW URINE APPEARANCE SL CLOUDY URINE GLUCOSE NEGATIVE (NEGATIVE) URINE BILIRUBIN NEGATIVE (NEGATIVE) URINE KETONE NEGATIVE (NEGATIVE) URINE SPECIFIC GRAVITY 1.015 (1.010-1.030) URINE PH 5.5 (5.0-8.0) URINE PROTEIN NEGATIVE (NEGATIVE) URINE UROBILINOGEN 0.2 EU/dL (0.2-1.0) URINE NITRITE NEGATIVE (NEGATIVE) URINE BLOOD 2+ (NEGATIVE) URINE LEUK ESTERASE POSITIVE (NEGATIVE) URINE RBC NONE SEEN rbc/hpf (0-1) URINE WBC 10-15 wbc/hpf (0-1) URINE EPITHELIAL CELLS 0-1 EPI/hpf (0-5) URINE BACTERIA MODERATE (2+ TO 3+) (NONE SEEN) URINE COMMENT CULTURE INDICATED 75-100 Hyaline Casts/l.p.f.URINE CULTURES ARE SET-UP BASED ON THE FOLLOWING CRITERIA:POSITIVE NITRITEPOSITIVE LEUKOCYTE ESTERASEGREATER THAN 10 WHITE BLOOD CELLSMODERATE (2+) OR GREATER BACTERIA CBC w Diff: (FELTON: 05/21/2017 20:25) ( MsgRcvd 05/21/2017 20:38) Final results Test Result Flag Units (Reference) WHITE BLOOD COUNT 13.7 H K/uL (4.5-11.5) RED BLOOD COUNT 3.03 L M/uL (4.00-5.20) HEMOGLOBIN 9.5 L gm/dL (12.0-16.0) HEMATOCRIT 28.2 L % (36.0-46.0) MEAN CELL VOLUME 93 fL (80-100) MEAN CORPUSCULAR HGB 31 pg (26-34) MEAN CORPUSCULAR HGB CONC 34 g/dL (31-37) RED CELL DISTRIBUTION WIDTH 15.6 H % (11.6-14.8) PLATELET COUNT 200 K/uL (150-400) NEUTROPHIL % 76.5 H % (50-75) LYMPH % 15.6 L % (25-40) MONO % 5.9 % (3-14) EOSINOPHIL % 1.7 % (0-4) BASOPHIL % 0.3 % (0-2) PT with INR: (FELTON: 05/21/2017 20:25) ( MsgRcvd 05/21/2017 21:04) Final results Test Result Flag Units (Reference) INR 2.5 H (0.8-1.2) Low Intensity Therapy: INR 1.5-2.0 PT range 18.5-23.1Mod.Intensity Therapy: INR 2.0-3.0 PT range 23.1-31.5High Intensity Therapy: INR 2.5-3.5 PT range 27.4-35.5High Intensity Therapy 2: INR 3.0-4.0 PT range 31.5-39.3 APTT 50 H SECONDS (24-34) D-DIMER QUANTITATIVE < 0.27 L ug/mLFEU (0.27-0.52) The primary value of this quantitative assay relates toits negative predictive value (i.e. exclusion) of pulmonaryembolism/deep vein thrombosis/DIC.Elevated levels of d-dimer may also occur with:, age, cancer, inflammation, liver disease,post-op, infection, hematoma, coronary disease, peripheralarteriopathy, bleeding disorders and thrombolytic treatment.Results should be correlated with other clinical andradiological data.Testing Methodology: Latex Immunoassay Urine Drug Screen: (FELTON: 05/21/2017 20:25) ( MsgRcvd 05/21/2017 21:06) Final results Test Result Flag Units (Reference) AMPHETAMINE/METHAMPHETAMINE NEGATIVE (NEGATIVE) BARBITURATE NEGATIVE (NEGATIVE) BENZODIAZEPINE POSITIVE H (NEGATIVE) CANNABINOID NEGATIVE (NEGATIVE) COCAINE NEGATIVE (NEGATIVE) ECSTASY NEGATIVE (NEGATIVE) METHADONE NEGATIVE (NEGATIVE) OPIATE POSITIVE H (NEGATIVE) The urine drug screen is a qualitative screening test fordrug overdose and abuse. All screen results should beconsidered as presumptive.Drugs screened for are as follows:BenzodiazepinesCocaineAmphetamines/MetamphetaminesTHC (Tetrahydrocannabinol)OpiatesBarbituratesEcstasyMethadonePositive results are unconfirmed. For confirmation, notifythe lab for the specimen to be sent to the reference lab.All confirmations must be performed by a differentmethodology.The ingestion of natural herbal and plant productscontaining Ephedra/Ephedra metabolites can produce in urineone or more substances capable of cross reacting withamphetamine/methamphetamine immunoassays. These testsprovide a preliminary result only. A more specificalternative chemical method must be used to obtain aconfirmed analytical result. BNP: (FELTON: 05/21/2017 20:25) ( MsgRcvd 05/21/2017 21:16) Final results Test Result Flag Units (Reference) B-TYPE NATRIURETIC PEPTIDE 770 H pg/ml (5-100) Ethyl Alcohol: (FELTON: 05/21/2017 20:25) ( MsgRcvd 05/21/2017 21:06) Final results Test Result Flag Units (Reference) ETHYL ALCOHOL < 3 L mg/dL (3-10) THYROID STIMULATING HORMONE 0.863 uIU/mL (0.30-3.74) . Pulse Oximetry: 05/21/2017 20:08 O2 saturation: 94%. (FIO2 - room air). Interpretation: normal. PROGRESS AND PROCEDURES Central Line Placement: A central line was placed in the right subclavian vein. Consent precluded by urgency of clinical situation. Hand hygiene observed, sterile barrier precautions adhered to (cap, mask, gown, gloves and large sterile sheet) and chlorhexidine skin antisepsis used. Local anesthetic infiltrated. Triple lumen central line placed using ultrasound guidance with sterile technique and Seldinger technique. Good blood return observed. Catheter was secured. Antibiotic ointment applied. The patient was clinically stable following the procedure. Post-procedure X-ray showed no pneumothorax and good catheter tip position. Course of Care: IV NS : Reduced due to CHF. Rocephin 2g IV for UTI Zithromax 500 mg IV ASA 325 mg po Patient has elevated troponin/NSTEMI, GI bleed with anemia, CHF, UTI & pneumonia with sepsis, as well as ALOC. Initial EKG shows no STEMI. Melonie note: This patient was signed out to me at 2300 by the off going emergency physician. At the time of sign out, the patient had been stable, and was set up for transfer to [facility], to the cardiac telemetry floor. She had been diagnosed with multiple acute issues including UTI, bilateral pneumonia, GI bleed with anemia, acute [place], chronic CHF, and probable sepsis. The patient had been treated with IV Rocephin and Zithromax already, and had been given 500 cc of normal saline IV. The transfer team did arrive around midnight to rock picker the patient, and at that time, I was notified by the nurse that the patient was hypotensive I did go examine the patient and noted that patient had had several readings within the last 30 minutes of systolic blood pressures in the 80s to 90s. This did appear to be a change from the blood pressures the patient had had throughout her stay thus far. Patient was arousable and did state that she was not feeling any different at this time than she had been. Repeat EKG at 0056 did not show a STEMI. I did give the patient another 500 cc of normal saline as I did suspect septic shock, though I did consider that the patient also has a history of CHF. As the patient was finishing this bolus, and she was beginning to have more audible crackles with breathing, and I did have nursing staff stop the bolus. The patient was still hypotensive with systolic blood pressures ranging in the 70s and 80s primarily, and I did feel that the patient was going to need vasopressors. Additionally, [facility] did not have any critical care beds, and so I did have to restart the transfer process. We did attempt once again to get a hold of [facility]'s on-call hospitalist, but we never heard back from her, After multiple attempts to reach her. We spoke with [facility], but they stated that the patient was too complex for them to be able to manage in their intensive care unit. I did then speak with the weatherization coordinator at [facility], who did agree to accept the patient in transfer. In the meantime, I had placed a subclavian central line, and the patient was receiving levothyroid. This did immediately bring the patient's blood pressure up although her map was in the upper 50s. She did ultimately end up on a drip rate of 6 after titration. The transfer team did ask also to have a negative dobutamine hanging that this is not yet started. The patient central line had been confirmed to be in good position by the chest x-ray there was a repeat chest x-ray did also show increased bilateral infiltrates consistent with congestive heart failure. The patient had become more somnolent in the emergency department, but was at this point arousable to noxious stimuli. I did discuss the possibility of intubation with the weatherization coordinator, but he preferred that this not be done unless necessary. At this point the patient was maintaining oxygen saturation in the low to mid 90s on 4 L per nasal cannula and I did feel that she could reasonably be transported on supplemental oxygen. The patient's ABG showed the patient to be moderately acidotic, with a PO2 175 and PCO2 of 51. Patient ultimately, while critically ill, did stabilize somewhat in the emergency department and was able to be transferred. Critical care performed (Critical care time 180 minutes.). Time is exclusive of separately billable procedures. Time includes: direct patient care, patient reassessment, coordination of patient care, interpretation of data (laboratory data, pulse oximetry, arterial blood gases, chest xrays, prior electrocardiograms and cardiac output measurements), review of patient's medical records, medical consultation, family consultation regarding treatment decisions and documentation of patient care. Procedures included in critical care time: peripheral IV placement and phlebotomy. Procedures excluded from critical care time: central intravenous line placement and electrocardiography- see progress notes. The patient required critical care due to the acute impairment of vital organ systems (cardiovascular, respiratory and central nervous system) and a high probability of imminent and life threatening deterioration. Numerous emergent and urgent interventions were required to prevent sudden life threatening deterioration. Discussed case with hospitalist, (Alexx/Yang: Accepts to cards/tele floor). Reviewed test results and need for additional work-up. Agreed upon treatment plan and decision to admit. Health care provider will see patient in hospital. Discussed case with on-call health care provider, (Amber/weatherization coordinator/[place]: Accepts pt in transfer). Reviewed test results and need for additional work-up. Agreed upon treatment plan and decision to admit. Health care provider will see patient in hospital. Patient/family counseled. Old medical records ordered. Disposition: Transferred to [facility]. Condition: critical. CLINICAL IMPRESSION Occult and minor GI bleed with hematochezia. Sepsis with altered mental status and acute central nervous system failure and renal failure (requiring vasopressors). Acute moderate systolic, left ventricular congestive heart failure Acute urinary tract infection with cystitis. Moderate chronic renal failure. Acute myocardial infarction with elevated markers, EKG changes and no ST elevation (NSTEMI). Aspirin administered in ED. Possible pneumonia. (Electronically signed by Kelly Wilhelm MD 05/22/2017 6:40) Addenda for CONNORODILON Farideh VisitID: [id number] Date: 05/21/2017 05/24/2017 16:39 Faxed postive culture result of e-coli to [phone]. Spoke with RN at [facility] [place] Daja Segura, aware of postive culture result. Faxed result to Attn: AMAYA Baldwin (Electronically signed by Shawn Arciniega R.N. - 05/24/2017 16:39)
--- NOTE | 2017-05-21 21:32 | ED NURSING NOTES ---
Clinical Report - Nurses [facility] [address] [place] [address] 05/21/2017 20:01 Patient: ODILON RYAN TRIAGE Triage time 2000. Chief Complaint: CONFUSED. Alert. No acute distress. CARLA COMA SCORE: [place] Coma Scale: 14- eyes open spontaneously (4); best verbal response- disoriented (4); best motor response- obeys commands (6). --20:21 Ana Maria Lafleur R.N. 20:08 05/21/17. BP: 96/74. HR: 52. RR: 20. O2 saturation: 94%. Temp: 98.7 F. Pain level now 0/10. --20:21 Ana Maria Lafleur R.N. Weight: 61.6 kg stated. Height/Length: 62 inches Per Patient. BMI: 24.9. --20:08 Ana Maria Lafleur R.N. Medications Ferrous Sulfate Oral 325 mg, 2x a day. --20:11 Ana Maria Lafleur R.N. Digoxin Oral (Tablet 125 mcg) 1 tablet, every other day. --20:11 Ana Maria Lafleur R.N. Gabapentin Oral (Capsule 300 mg), 3x a day. --20:12 Ana Maria Lafleur R.N. Ondansetron Oral 4 mg, 3x a day. --20:12 Ana Maria Lafleur R.N. Lisinopril Oral 2.5 mg, daily. --20:12 Ana Maria Lafleur R.N. Atorvastatin Calcium Oral 20 mg, at bedtime. --20:12 Ana Maria Lafleur R.N. Sertraline HCl Oral 12.5mg, daily. --20:12 Ana Maria Lafleur R.N. Potassium Chloride Oral 10 meq, 2x a day. --20:12 Ana Maria Lafleur R.N. Warfarin Sodium Oral (Tablet 2.5 mg) 1 tablet, daily. --20:13 Ana Maria Lafleur R.N. Torsemide Oral (Tablet 20 mg), 2x a day. --20:14 Ana Maria Lafleur R.N. OxyCODONE HCl Oral 7.5. --20:16 Ana Maria Lafleur R.N. Allergies Penicillins. Vancomycin. --20:04 Ana Maria Lafleur R.N. Medication/allergy information source: the patient and patient's family. --20:21 Ana Maria Lafleur R.N. History Arrived by EMS. Historian: patient. This started today. ( daughter reports confusion over last day, falls asleep too easily, trouble getting around, tremors, some blood in stool while EMS picked up.). She has had weakness (since 1 days ago). She has had incontinence. Treatment [employer]: None. SOCIAL HX: Light tobacco smoker (cigarette)- less than 1/2 a pack per day. No alcohol use or drug use. No infectious disease exposure. ABUSE ASSESSMENT: No report of abuse. SELF HARM ASSESSMENT: A self harm assessment was performed. The patient answered "no" to the question "Do you have thoughts of harming or killing yourself?" and "Are you here because you tried to hurt yourself?". NUTRITIONAL RISK ASSESSMENT: The nutritional risk assessment revealed no deficiencies. FUNCTIONAL ASSESSMENT: Functional assessment: no impairments noted. LEARNING NEEDS ASSESSMENT: The learning needs assessment revealed no barriers. FALL RISK ASSESSMENT: Fall risk assessment completed. Risk factors identified include patient age greater than 65 years and impairment of cognition. Fall interventions initiated. Side rails up x2. Brakes on Bed in low position. Patient visible from nurses' station. Call light in reach of patient. Instructed not to get up without assistance. SKIN INTEGRITY ASSESSMENT: Skin integrity risk assessment completed. No skin integrity risk identified. --20:21 Ana Maria Lafleur R.N. PROBLEMS: Hypokalemia. Atrial Fibrillation. C. Difficile Colitis. Diarrhea. Epistaxis. Spinal Cord Compression. Herniated Disk. Heart Disease. Congestive Heart Failure. Mitral regurgitation. Hypotension. Anemia. Dehydration. Cancer. Hypertension. Coronary Artery Disease. Immunizations. --20:17 Ana Maria Lafleur R.N. ADDITIONAL SURGERIES: Back Surgery. Cataract Surgery. Defibrillator placed 02/15/12. Hysterectomy. --20:17 Ana Maria Lafleur R.N. Interventions ID band on patient. To treatment room. --20:21 Ana Maria Lafleur R.N. PHYSICAL ASSESSMENT To room via wheelchair. Patient gowned. GENERAL / NEURO / PSYCH: Alert. Appears in no acute distress. The patient is disoriented to place. Speech within normal limits. RESPIRATORY: Respirations not labored. SKIN: Skin is warm and dry. --20:27 Ana Maria Lafleur R.N. RESPIRATORY: Respirations not labored. CVS: Cardiac rhythm: right bundle branch block; atrial pacing. --20:33 Ana Maria Lafleur R.N. NURSING PROGRESS NOTES Patient ID band checked for patient name and birthdate: patient confirmed. Blood samples drawn from the right forearm peripheral IV site with Vacutainer by nurse ; labeled in presence of the patient and sent to lab: rainbow set: cardiac enzymes (1st set). Line flushed with 10 mL normal saline post blood draw. --20:34 Mary Arnett 8 fr in/out catheterization. Reason for indwelling catheter: patient's decreased level of consciousness. During procedure hand hygiene observed and sterile equipment and aseptic technique used. Return of 50 mL yellow-colored clear urine. She tolerated procedure well. --20:35 Mary Arnett Hemoccult test positive. air intercept controller supervisor check passed. Provider notified (POC test reference range: negative). --20:35 Mary Arnett 20:12. EKG was performed by a tech and shown to the ED physician. --20:42 McQuoid, Debra, ER Tech1 20:22 05/21/2017 Site #1 started via IV in the right hand with an 20g angiocath, with aseptic technique and good blood return; one attempt. Blood drawn: rainbow set. Labeled in the presence of the patient and sent to the lab. Saline lock flushed with 5 mL saline (placed by Reji TRUONG). --20:48 Ana Maria Lafleur R.N. 20:44 05/21/2017 Site #2 started via IV in the left forearm with an 20g angiocath, with aseptic technique and good blood return; one attempt. Blood drawn. Labeled in the presence of the patient and sent to the lab. Saline lock flushed with 5 mL saline (lactic acid drawn). --20:49 Ana Maria Lafleur R.N. 20:49 05/21/2017 Started bag #1 500 mL IV Fluids IV NS (Saline); at 1000 mL/hr via site #1 via IV pump. Allergies verified and confirmed 5 rights. IV patency established. IV site checked: no pain, redness, or swelling. IV flushed thoroughly pre- and post-medication administration. --20:49 Ana Maria Lafleur R.N. Monitoring of patient in place. Portable chest x-ray. Patient gowned. Head of bed elevated. In/out catheterization. Reason for indwelling catheter: patient's decreased level of consciousness. During procedure hand hygiene observed and sterile equipment and aseptic technique used. Return of yellow-colored urine. She tolerated procedure well. Urine collected. Hemoccult test positive. air intercept controller supervisor check passed. (POC test reference range: negative). Two patient identifiers checked. Call light placed in reach. Side rails up x 2. Bed placed in lowest position. Brakes of bed on. Patient ready for evaluation. --20:57 Ana Maria Lafleur R.N. Checked patient name and birthdate. Blood samples drawn from the left forearm peripheral IV site: blood culture (1st set). Line flushed with 5 mL normal saline post blood draw. --21:05 Ana Maria Lafleur R.N. 21:05 05/21/17. BP: 96/41. HR: 55. RR: 24. O2 saturation: 98% on nasal cannula at 2 liters/minute. --21:06 Ana Maria Lafluer R.N. 21:11 05/21/17. BP: 112/51. HR: 54. RR: 22. O2 saturation: 93% on nasal cannula at 1 liters/minute. --21:13 Ana Maria Lafleur R.N. Cardiac rhythm: right bundle branch block; atrial pacing. ( patient falls asleep easily, then easily aroused, mildly apneic when sleeping). --21:13 Ana Maria Lafleur R.N. 21:24 05/21/2017 Started 2 gm of Rocephin (CefTRIAXone Sodium) IVPB in bag #1 50 mL; at 100 mL/hr over 30 minute(s) via site #1; Allergies verified and confirmed 5 rights. IV patency established. IV site checked: no pain, redness, or swelling. IV flushed thoroughly pre- and post-medication administration. --21:24 Ana Maria Lafleur R.N. 20:45 05/21/17. BP: 97/45. HR: 55. RR: 18. O2 saturation: 89% on room air. --21:36 Ana Maria Lafleur R.N. Patient returned from CT by stretcher with tech. (21:49). --21:50 Ana Maria Lafleur R.N. 21:49 05/21/17. BP: 100/70. HR: 54. RR: 22. O2 saturation: 97%. --21:50 Ana Maria Lafleur R.N. Reassessment after oxygen and fluids administered and medication administered. GENERAL / NEURO / PSYCH: The patient is disoriented. Patient is calm and cooperative. RESPIRATORY: No respiratory distress. SKIN: Skin is warm and dry. ( Family at BS with hospitalist). --21:55 Ana Maria Lafleur R.N. Critical value relayed to ED by 21:57 Lab. Critical value received by 21:58 Ana Maria RN. Lactate level: 2.2. Critical value read back. Provider notifed of critical value (Dr. Gomez). Orders were not received. ED physician notified. --21:59 Ana Maria Lafleur R.N. 21:54 05/21/2017 Rocephin IVPB Discontinued: bag #1 completed upon admission. Total amount infused: 50 mL. IV patency established. IV site checked: no pain, redness, or swelling. IV flushed thoroughly. --22:04 Ana Maria Lafleur R.N. 22:28 05/21/2017 Started 500 mg of Zithromax (Azithromycin) IVPB in bag #1 250 mL; at 250 mL/hr over 30 minute(s) via site #1 via IV pump. Allergies verified and confirmed 5 rights. IV patency established. IV site checked: no pain, redness, or swelling. IV flushed thoroughly pre- and post-medication administration. --22:28 Ana Maria Lafleur R.N. 22:32 05/21/2017 Aspirin PO 324 mg given. Allergies verified and confirmed 5 rights. --22:32 Ana Maria Lafleur R.N. 22:34 05/21/17. BP: 103/42. HR: 51. RR: 19. O2 saturation: 99%. Temp: 97.8 F. Pain level now 8/10. --22:37 Ana Maria Lafleur R.N. 23:24 05/21/2017 Site #1 removed upon admission. Pressure dressing applied (site infiltrated.). --23:29 Ana Maria Lafleur R.N. 23:29 05/21/2017 Zithromax IVPB Discontinued: bag #1 completed upon admission. Total amount infused: 250 mL. IV patency established. IV site checked: no pain, redness, or swelling. IV flushed thoroughly. --23:29 Ana Maria Lafleur R.N. 23:30 05/21/17. BP: 101/81. HR: 53. RR: 18. O2 saturation: 98%. --23:32 Ana Maria Lafleur R.N. Care transferred and report given. ( transferred care of patient to Cornelio TRUONG). --23:32 Ana Maria Lafleur R.N. 23:42 Mary at [facility] contacted, she stated that the [place] could be [place] [facility] [place] --23:43 McQuoid, Debra, ER Tech1 00:35 05/22/17. BP: 74/52. --01:08 McQuoid, Debra, ER Tech1 00:45 05/22/17. BP: 94/41. --01:09 McQuoid, Debra, ER Tech1 00:53 05/22/17. BP: 97/28. --01:09 McQuoid, Debra, ER Tech1 00:55 05/22/17. BP: 94/44. --01:10 McQuoid, Debra, ER Tech1 EKG time: (00:56). EKG was performed by a tech and shown to the ED physician. --01:19 Divya Armstrong [id number] 01:28 May 22 2017Jul 2016. ED physician notified about patient's status. ( assumed care of pt- pt found hypotensive, hr in the 50's, pt woke to name and Dr Wilhelm called to bedside as well as supervisor propellant charge loading. pt moved to trauma room 1, will prepare for a central line. EMS transport at bedside, plan was for pt to go to [facility], pt will remain in the ED for higher care prior to transfer.). --01:30 Reji Lazo R.N. 00:36 05/21/2017 Started bag #1 500 mL IV Fluids IV NS (Saline); at 1000 mL/hr via site #2. Allergies verified and confirmed 5 rights. IV patency established. IV site checked: no pain, redness, or swelling. IV flushed thoroughly pre- and post-medication administration (pressure bag). --01:40 Reji Lazo R.N. 00:36 05/22/17. ( vo from Dr Wilhelm to give 500ns bolus). --01:41 Reji Lazo R.N. 01:26 05/22/2017 Started 2 mcg of NOREPINEPHRINE Drip IV in bag #1 250 mL; at 2 mcg/min via site #2 via IV pump. Allergies verified and confirmed 5 rights. IV patency established. IV site checked: no pain, redness, or swelling. IV flushed thoroughly pre- and post-medication administration. --01:33 Reji Lazo R.N. ( levophed mixed 4mg/250ml NS per vo , mix checked with nanny/household manager). --01:33 Reji Lazo R.N. ( cont at bedside attempting central line. Located within [facility] contacted, per MD vasquez reports pt too sick for them .). --01:34 Reji Lazo R.N. 01:41 05/22/2017 NOREPINEPHRINE Drip IV via IV site #2 Rate Changed: increased to 3 mcg/min via IV pump. IV patency established. IV site checked: no pain, redness, or swelling. IV flushed thoroughly. Confirmed 5 Rights. --01:52 Reji Lazo R.N. 01:44 05/22/2017 Site #3 started via central line in the right subclavian, with aseptic technique and good blood return; two attempts. Saline lock flushed (placed by ). --01:55 Reji Lazo R.N. 01:48 05/22/2017 NOREPINEPHRINE Drip IV via IV site #2 Rate Changed: increased to 4 mcg/min via IV pump. IV patency established. IV site checked: no pain, redness, or swelling. IV flushed thoroughly. Confirmed 5 Rights. --01:53 Reji Lazo R.N. ( xray at bedside checking placement of right subclavian cl-). --01:54 Reji Lazo R.N. ( ok to use central line per ). --01:55 Reji Lazo R.N. 01:59 05/22/2017 NOREPINEPHRINE Drip IV via IV site #2 Rate Changed: increased to 5 mcg/min via IV pump. IV patency established. IV site checked: no pain, redness, or swelling. IV flushed thoroughly. Confirmed 5 Rights. --01:59 Reji Lazo R.N. 02:19 05/22/2017 Started of Dobutamine (DOBUTamine HCl) Drip IV; at 2 mcg/kg/min via site #3; (given to RN EMS if needed for transport). --02:20 Reji Lazo R.N. ( RN EMS requested dobutamine for transit in the event needed, vo- ok per Dr Wilhelm). --02:20 Reji Lazo R.N. 02:20 05/22/17. BP: 138/40. HR: 56. RR: 21. O2 saturation: 100%. --02:24 Reji Lazo R.N. 01:00. ( Helped ER Doctor with set up for Central line placement). --04:02 [facility]. DISPOSITION / DISCHARGE Transported via stretcher by nurse with monitor, IV, O2 and emergency medications. Report was given to a nurse via a phone call. Report included patient's care, treatment, medications, reviewed medication reconcilliation, and condition (including any recent changes or anticipated changes). All questions were answered. Report was acknowledged and care was transferred. (Kristie MACHINE SAND MIXER). --02:46 Mary Arnett Departure time: 02:46 May 22 2017. Transferred to [facility]. Summary of care provided to transport team and transfer facility. Transported via stretcher by EMS with monitor, IV, O2 and emergency medications. --05:52 Mary Arnett. Locked/Released at 05/24/2017 18:03 by Reji Lazo R.N.
--- NOTE | 2017-05-21 21:59 | DIAGNOSTIC IMAGING REPORT ---
PROCEDURE: CT HEAD WITHOUT CONTRAST INDICATION: MENTAL STATUS CHANGE TECHNIQUE: Noncontrast axial images with sagittal and coronal reformations. COMPARISON: Compared to head CT on 10/23/2015. FINDINGS: Allowing for motion, there is evidence of mild old small vessel disease with old lacunar infarcts in the basal ganglia. Brain and ventricles are otherwise normal. No evidence of an acute process or hemorrhage. Sinuses and mastoids are normal. IMPRESSION: 1. 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 2. Otherwise negative head CT. No evidence of acute process. 3. Findings discussed with Dr. Long Gomez at [address] scans at this facility use dose modulation, iterative reconstruction, and/or weight-based dosing when appropriate to reduce radiation dose to as low as reasonably achievable.
--- NOTE | 2017-05-22 07:44 | DIAGNOSTIC IMAGING REPORT ---
PROCEDURE: XR CHEST 1 VIEW INDICATION: CENTRAL LINE PLACEMENT TECHNIQUE: Portable AP view 01:53 a.m. COMPARISON: Chest x-ray 05/21/2017 FINDINGS: Improved right upper lobe and retrocardiac alveolar opacities but new opacity in the right lung base. Moderate cardiomegaly with dual lead pacing device and that progression of pulmonary vascular congestion. Thorax is normal. IMPRESSION: 1. Moderate cardiomegaly with progression of pulmonary vascular congestion and CHF 2. Left-sided pacing device 3. New right basilar alveolar infiltrate suggestive of pneumonia, possibly aspiration. There has been improvement of the right upper and retrocardiac infiltrates.
--- NOTE | 2017-05-24 18:03 | ED MED RECONCILIATION SUMMARY ---
Patient: ODILON RYAN Medication Reconciliation Report [facility] VisitID: [id number] [address] [place] [address] 76y, F Registration Date/Time: 05/21/2017 Weight: 61.6 kg Height/Length: 62 in. BMI: 24.9 ALLERGIES: Penicillins, Vancomycin The patient's Home Medications are listed below: THE FOLLOWING MEDICATIONS NEED TO BE RECONCILED: Atorvastatin Calcium Oral 20 mg, at bedtime Digoxin Oral (125 mcg) 1 tablet, every other day Ferrous Sulfate Oral 325 mg, 2x a day Gabapentin Oral (300 mg), 3x a day Lisinopril Oral 2.5 mg, daily Ondansetron Oral 4 mg, 3x a day OxyCODONE HCl Oral 7.5 Potassium Chloride Oral 10 meq, 2x a day Sertraline HCl Oral 12.5mg, daily Torsemide Oral (20 mg), 2x a day Warfarin Sodium Oral (2.5 mg) 1 tablet, daily The source(s) of the original Home Medication information: patient patient's family member The following Medications were given to the patient in the Emergency Department: IV NS IV Fluids bolus 0, then 1000 mL/hr, administered: 05/21/2017 8:49:00 PM Rocephin [IVPB] IVPB bolus 0, then 2 gm 100 mL/hr, administered: 05/21/2017 9:24:00 PM Zithromax [IVPB] IVPB bolus 0, then 500 mg 250 mL/hr, administered: 05/21/2017 10:28:00 PM Aspirin [PO] PO 324 mg, administered: 05/21/2017 10:32:00 PM NOREPINEPHRINE [IV DRIP] Drip IV bolus 0, then 2 mcg 2 mcg/min, administered: 05/22/2017 1:26:00 AM IV NS IV Fluids bolus 0, then 1000 mL/hr, administered: 05/21/2017 12:36:00 AM Dobutamine [IV Drip] Drip IV bolus 0, then 2 mcg/kg/min, administered: 05/22/2017 2:19:00 AM The following Medications were prescribed to the patient: None.
--- NOTE | 2017-05-24 18:03 | ED DISCHARGE INSTRUCTIONS ---
Patient: ODILON RYAN General Instructions [facility] VisitID: [id number] [place] [address] 76y, F Registration Date/Time: 05/21/2017 Occult and minor GI bleed with hematochezia. Sepsis with altered mental status and acute central nervous system failure and renal failure (requiring vasopressors). Acute moderate systolic, left ventricular congestive heart failure Acute urinary tract infection with cystitis. Moderate chronic renal failure. Acute myocardial infarction with elevated markers, EKG changes and no ST elevation (NSTEMI). Aspirin administered in ED. Possible pneumonia. ADDITIONAL INFORMATION Bladder Infection,Female (Adult) A bladder infection ("cystitis" or "UTI") usually causes a constant urge to urinate and a burning when passing urine. Urine may be cloudy, smelly or dark. There may be pain in the lower abdomen. A bladder infection occurs when bacteria from the vaginal area enter the bladder opening (urethra). This can occur from sexual intercourse, wearing tight clothing, dehydration and other factors. Home Care: Drink lots of fluids (at least 6-8 glasses a day, unless you must restrict fluids for other medical reasons). This will force the medicine into your urinary system and flush the bacteria out of your body. Avoid sexual intercourse until your symptoms are gone. Avoid caffeine, alcohol and spicy foods. These can irritate the bladder. A bladder infection is treated with antibiotics. You may also be given Pyridium (generic = phenazopyridine) to reduce the burning sensation. This medicine will cause your urine to become a bright orange color. The orange urine may stain clothing. You may wear a pad or panty-liner to protect clothing. Preventing Future Infections: Always wipe from front to back after a bowel movement. Keep the genital area clean and dry. Drink plenty of fluids each day to avoid dehydration. Both sexual partners should wash before intercourse. Urinate right after intercourse to flush out the bladder. Wear cotton underwear and cotton-lined panty hose; avoid tight-fitting pants. If you are on control pills and are having frequent bladder infections, discuss with your doctor. Follow Up: Return to this facility or see your doctor if ALL symptoms are not gone after three days of treatment. Get Prompt Medical Attention if any of the following occur: Fever of 100.4F (38C) or higher, or as directed by your healthcare provider No improvement by the third day of treatment Increasing back or abdominal pain Repeated vomiting; unable to keep medicine down Weakness, dizziness or fainting Vaginal discharge Pain, redness or swelling in the labia (outer vaginal area) Heart Failure (Left Or Right Sided) The heart is a large muscle that pumps blood throughout the body. Blood carries oxygen to all the organs, muscles, and skin of your body. After the body takes the oxygen out of the blood, the blood returns to the heart. The right side of the heart collects that blood and pumps it to the lungs to receive fresh oxygen. This oxygen-rich blood from the lungs then returns to the left side of the heart where it is pumped back out to the rest of the body, starting the process all over. Heart Failure (HF) occurs when the heart muscle is weakened. This affects the pumping action of the heart. When the right side of the heart is weakened, it cant handle the blood it is receiving from the rest of the body. This blood returns to the heart through veins. When too much pressure builds up in the veins fluid leaks out into the tissues. Wendell then causes that fluid to spread to those parts of the body that are the lowest. Therefore, one of the first symptoms of HF include swelling in the feet and ankles. If the condition worsens, the swelling can even go up past the knees. When the left side of the heart is weakened, it cant handle the blood it is receiving from the lungs. Pressure then builds up in the veins of the lungs, causing fluid to leakinto the lung tissues. This may be referred to as congestive heart failure.This causes you to feel short of breath, weak, or dizzy. These symptoms are often worse with exertion, such as climbing stairs or walking up hills. Lying flat is uncomfortable and can make your breathing worse. This may make sleeping difficult and force you to useextra pillows to sleep well. This condition may not only affect the right side of the heart or only the left side. While it may have started on one side, it often affects both sides. Causes of heart failure Coronary artery disease Prior heart attack (also known as acute myocardial infarction, or AMI) High blood pressure Damaged heart valve Diabetes Obesity Cigarette smoking Alcohol abuse Treatment Heart failure is a chronic condition. There is no cure. The purpose of medical treatment is to improve the pumping action of the heart, and remove excess water from the body. A number of medications can help achieve this goal,improvesymptoms and prevent the heart from becoming weaker. Another major goal is to better treat the caues of heart failure, such as diabetes, high blood pressure, and your lifestyle. Home care Check your weight every day. A sudden increase in weight gain could mean worsening heart failure. Use the same scale every day Weigh yourself at the same time every day Make sure the scale is on the floor, not on a rug Keep a record of your weight every day, so your doctor can see it. If you are not given a log sheet for this, keep a separate journal for this purpose. Reduce your salt (sodium) intake. Avoid high-salt foods (olives, pickles, smoked meats, salted potato chips, etc.). Do not add salt to your food at the table and use only small amounts of salt when cooking. Follow your doctors recommendations about how much fluid intake is safe. Stop smoking. Reduce alcohol use. Lose weight if you are overweight. The excess weight adds a lot of stress on the workload of the heart. Stay active. Talk to your doctor about an exercise program that is safe for your heart. Keep your feet elevated to reduce swelling. Ask your doctor about support hose as a preventive treatment for daytime leg swelling. Besides taking your medicine as instructed, an important part of treatment includes lifestyle changes such as diet, physical activity, stopping smoking, and weight control. Improve your diet. Often in the hospital, people are given a "heart healthy diet." This includes more fresh foods, lower fat, less processed foots, and lower salt. Follow-up care Follow up with your doctor as directed by our staff. Make sure to keep any appointments that were made for you as this can help better control heart failure. If an X-ray was done, you will be notified of any new findings that may affect your care. Call 911 Call 911 if you: Become severely short of breath Feel lightheaded, or feel like you might pass out or faint Have chest pain or discomfort that is different than usual, the medicines your doctor told you to use for this do not help, or the pain lasts longer than 10 to 15 minutes Suddendly develop a rapid heart rate When to seek medical care Get prompt medical attention if you have any of the following signs of worsening heart failure: Sudden weight gain (3or more pounds in one day or5or more pounds in one week) Trouble breathing not related to being active New or increased swelling of your legs or ankles Swelling or pain in your abdomen Breathing trouble at night (waking up short of breath, needing more pillows to breathe) Frequent coughing that doesnt go away Feeling much more tired than usual Heart Failure - Left-Sided The heart is a large muscle that pumps blood throughout the body. Blood carries oxygen to all the organs, muscles, and skin of your body. After the body takes the oxygen out of the blood, the blood returns to the heart. The right side of the heart collects that blood and pumps it to the lungs to receive fresh oxygen. This oxygen-rich blood from the lungs then returns to the left side of the heart where it is pumped back out to the rest of the body, starting the process all over. Heart Failure (HF) occurs when the heart muscle is weakened. This affects the pumping action of the heart. When the left side of the heart is weakened, it cant handle the blood it is receiving from the lungs. Pressure then builds up in the veins of the lungs, causing fluid to leakinto the lung tissues. This may be referred to as congestive heart failure.This causes you to feel short of breath, weak, or dizzy. These symptoms are often worse with exertion, such as climbing stairs or walking up hills. Lying flat is uncomfortable and can make your breathing worse. This may make sleeping difficult and force you to useextra pillows to sleep well. Causes of heart failure Coronary artery disease Prior heart attack (also known as acute myocardial infarction, or AMI) High blood pressure Damaged heart valve Diabetes Obesity Cigarette smoking Alcohol abuse Treatment Heart failure is a chronic condition. There is no cure. The purpose of medical treatment is to improve the pumping action of the heart, and remove excess water from the body. A number of medications can help achieve this goal,improvesymptoms and prevent the heart from becoming weaker. Another major goal is to better treat the caues of heart failure, such as diabetes, high blood pressure, and your lifestyle. Home care Check your weight every day. A sudden increase in weight gain could mean worsening heart failure. Use the same scale every day Weigh yourself at the same time every day Make sure the scale is on the floor, not on a rug Keep a record of your weight every day, so your doctor can see it. If you are not given a log sheet for this, keep a separate journal for this purpose. Reduce your salt (sodium) intake. Avoid high-salt foods (olives, pickles, smoked meats, salted potato chips, etc.). Do not add salt to your food at the table and use only small amounts of salt when cooking. Follow your doctors recommendations about how much fluid intake is safe. Stop smoking. Reduce alcohol use. Lose weight if you are overweight. The excess weight adds a lot of stress on the workload of the heart. Stay active. Talk to your doctor about an exercise program that is safe for your heart. Keep your feet elevated to reduce swelling. Ask your doctor about support hose as a preventive treatment for daytime leg swelling. Besides taking your medicine as instructed, an important part of treatment includes lifestyle changes such as diet, physical activity, stopping smoking, and weight control. Improve your diet. Often in the hospital, people are given a "heart healthy diet." This includes more fresh foods, lower fat, less processed foots, and lower salt. Follow-up care Follow up with your doctor as directed by our staff. Make sure to keep any appointments that were made for you as this can help better control heart failure. If an X-ray was done, you will be notified of any new findings that may affect your care. Call 911 Call 911 if you: Become severely short of breath Feel lightheaded, or feel like you might pass out or faint Have chest pain or discomfort whic is different than usual, the medicines your doctor told you to use for this do not help, or the pain lasts longer than 10 to 15 minutes Suddendly develop a rapid heart rate When to seek medical care Get prompt medical attention if you have any of the following signs of worsening heart failure: Sudden weight gain (more than 2 pounds in 1 day or 5 pounds in 1 week, or whatever weight gain you were told to report by your doctor) Trouble breathing not related to being active New or increased swelling of your legs or ankles Swelling or pain in your abdomen Breathing trouble at night (waking up short of breath, needing more pillows to breathe) Frequent coughing that doesnt go away Feeling much more tired than usual Chronic Renal Failure The role of the kidneys is to remove waste products and excess water from the blood. When the kidneys do not function normally and waste products begin to build up in the blood, this is called renal insufficiency. When it is advanced, it is called chronic renal failure or end-stage renal disease.Chronic renal failure allows excess water, waste and toxic substances to build up in the body. This can eventually become life-threatening, requiring dialysis or a kidney transplant to stay alive. Diabetes is the leading causes of chronic renal failure. Other causes include high blood pressure, hardening of the arteries (atherosclerosis), lupus, inflammation of the blood vessels (vasculitis), prior viral and bacterial infections, and others. Certain [id number] pain medicines can cause renal failure when taken often over a long period of time. These include aspirin, ibuprofen (Advil, Motrin) and related anti-inflammatory medicines. Home Care: If you have diabetes, talk to your doctor about the quality of your blood sugar control and any adjustments needed to your diet. If you have high blood pressure: Take prescribed medicine to lower your blood pressure to normal (130/80 mm Hg). Take up a regular exercise program that you enjoy.Check with your doctor to be sure your planned exercise program is right for you. Reduce your salt (sodium) intake.Your doctor can tell you how much salt per day is safe for you. If you are overweight, talk to your doctor about a weight loss plan. If you smoke, you must quit. Smoking worsens kidney disease.Talk to your doctor about ways to help you quit. For more information, visit the following links: www.smokefree.gov/pubs/clearing_the_air.pdf www.smokefree.gov www.quitnet.com All patients with chronic renal failure need to follow a special diet. Be sure you understand yours. In general, you will need to restrict protein, salt, potassium and phosphorus.You also need to limit fluid intake.A calcium supplement will be prescribed to protect your bones from osteoporosis. Avoid the following over the counter medicines, or consult your doctor before using: Aspirin and anti-inflammatory drugs such as ibuprofen (Advil, Motrin), naprosyn (Aleve); [Short term use of acetaminophen (Tylenol) for fever or pain is okay.] Laxatives and antacids containing magnesium or aluminum (Mylanta, Maalox) Fleet or phosphosoda enemas containing phosphorus Certain stomach acid-blocking medicine such as cimetidine (Tagamet), ranitidine (Zantac) Decongestants containing pseudoephedrine (such as some forms of Sudafed or Actifed) Herbal supplements Follow Up with your doctor or as advised by our staff. Contact one of the following for more information. [place] [employer] www.aakp.org National Kidney Foundation www.kidney.org [NOTE: If an X-ray or EKG (cardiogram) was made, another specialist will review it. You will be notified of any new findings that may affect your care.] Return Promptly or contact your doctor if any of the following occurs: Nausea or vomiting Severe weakness, dizziness, fainting, drowsiness or confusion Chest pain or shortness of breath Unexpected weight gain or swelling in the legs, ankles or around the eyes Heart beating fast, slow or irregularly Decrease or absent urine output Rectal Bleeding (Stable) Your exam today shows signs of blood in the stool. This is called rectal bleeding, because the blood passes through the rectum. However, the blood may not be coming from the rectum. Blood in the stool may be red or black in color. Red blood in the stool usually comes from the lower gastro-intestinal (GI) tract. This may be due to diverticulosis, polyps, colon inflammation or infection, anal fissure or hemorrhoids. In persons over 50 tumors and cancer of the intestinal tract may first show up as red blood in the stool. Upper GI bleeding causes the stool to turn black. This may occur with bleeding from the esophagus, stomach, duodenum or small intestine. Very small amounts of GI bleeding may not be visible and can only be discovered on a chemical test of the stool. You have not lost a large amount of blood and your condition appears stable at this time. It is very important to have a follow-up exam to determine the exact cause of your bleeding. Home Care: 1) You may resume normal activity as long as you feel well. 2) Avoid aspirin and anti-inflammatory drugs such as ibuprofen (Advil, Motrin) and naproxen (Aleve and Naprosyn). You may use acetaminophen (Tylenol) for pain. [ NOTE : If you have chronic liver disease, talk with your doctor before using acetaminophen.] 3) Avoid alcohol. Follow Up with your doctor or as advised by our medical staff. It is very important that you have further tests done to find the cause of your bleeding. Get Prompt Medical Attention if any of the following occur: -- Large amount of rectal bleeding (more than 1 cup of blood in 24 hours) -- Increasing abdominal pain -- Weakness, dizziness or fainting -- Vomiting blood (red or black color) You have been given the following additional information: Bladder Infection, Female (Adult) Heart Failure, General Heart Failure, Left-Sided Chronic Renal Failure Rectal Bleed, Stable (Electronically signed by Kelly Wilhelm MD 05/22/2017 6:40)
--- NOTE | 2017-05-24 18:03 | ED MAR SUMMARY ---
..... Medication Administration Record [facility] [address] [place] [address] Patient: ODILON RYAN Visit ID: [id number] 76y, F Weight: 61.6 kg Height/Length: 62 in BMI: 24.9 ALLERGIES: Penicillins, Vancomycin Start 00:36 05/21/2017 Reji Lazo R.N. Medication Administered: IV NS (SALINE), Dose: IV Fluids, Rate: 1000 mL/hr, Dispensed: 500 mL bag, Site: #2. Medication Ordered: IV NS : initial bolus 500 mL (1000 mL/hr), then 1000 mL/hr (NOW). Start 20:49 05/21/2017 Ana Maria Lafleur R.N. Medication Administered: IV NS (SALINE), Dose: IV Fluids, Rate: 1000 mL/hr, Dispensed: 500 mL bag, Site: #1 right hand. Medication Ordered: IV NS : initial bolus 500 mL (1000 mL/hr), then 125 mL/hr for 4h (NOW); Routine. Start 21:24 05/21/2017 Ana Maria Lafleur R.N., Stop 21:54 05/21/2017 Ana Maria Lafleur R.N. Medication Administered: ROCEPHIN [IVPB] (CEFTRIAXONE SODIUM), Dose: 2 gm IVPB over 30 minute(s), Rate: 100 mL/hr, Dispensed: 50 mL bag, Site: #1 right hand. Medication Ordered: Rocephin IV 2 gm/50mL (NOW). Start 22:28 05/21/2017 Ana Maria Lafleur R.N., Stop 23:29 05/21/2017 Ana Maria Lafleur R.N. Medication Administered: ZITHROMAX [IVPB] (AZITHROMYCIN), Dose: 500 mg IVPB over 30 minute(s), Rate: 250 mL/hr, Dispensed: 250 mL bag, Site: #1 right hand. Medication Ordered: Zithromax IV 500 mg/250 mL (NOW). Given 22:32 05/21/2017 Ana Maria Lafleur R.N. Medication Administered: ASPIRIN [PO], Dose: 324 mg PO. Medication Ordered: Aspirin PO 325 mg (NOW). Start 01:26 05/22/2017 Reji Lazo RSimranN. Medication Administered: NOREPINEPHRINE [IV DRIP], Dose: 2 mcg Drip IV, Rate: 2 mcg/min, Dispensed: 250 mL bag, Site: #2 left forearm. Medication Ordered: NOREpinephrine Drip IV : 0.5-12 mcg/min (HIGH ALERT MEDICATION, NOW). Start 02:19 05/22/2017 Reji Lazo R.N. Medication Administered: DOBUTAMINE [IV DRIP] (DOBUTAMINE HCL), Dose: Drip IV, Rate: 2 mcg/kg/min, Site: #3 right subclav central line(see procedure note). Medication Ordered: DOBUTamine Drip IV : 2 mcg/kg/min (HIGH ALERT MEDICATION, NOW) (vo to give to RN EMS for transport in the event needed).
--- NOTE | 2017-05-24 18:03 | ED MAR SUMMARY ---
..... Medication Administration Record [facility] [address] [place] [address] Patient: ODILON RYAN Visit ID: [id number] 76y, F Weight: 61.6 kg Height/Length: 62 in BMI: 24.9 ALLERGIES: Penicillins, Vancomycin Start 00:36 05/21/2017 Reji Lazo R.N. Medication Administered: IV NS (SALINE), Dose: IV Fluids, Rate: 1000 mL/hr, Dispensed: 500 mL bag, Site: #2. Medication Ordered: IV NS : initial bolus 500 mL (1000 mL/hr), then 1000 mL/hr (NOW). Start 20:49 05/21/2017 Ana Maria Lafleur R.N. Medication Administered: IV NS (SALINE), Dose: IV Fluids, Rate: 1000 mL/hr, Dispensed: 500 mL bag, Site: #1 right hand. Medication Ordered: IV NS : initial bolus 500 mL (1000 mL/hr), then 125 mL/hr for 4h (NOW); Routine. Start 21:24 05/21/2017 Ana Maria Lafleur R.N., Stop 21:54 05/21/2017 Ana Maria Lafleur R.N. Medication Administered: ROCEPHIN [IVPB] (CEFTRIAXONE SODIUM), Dose: 2 gm IVPB over 30 minute(s), Rate: 100 mL/hr, Dispensed: 50 mL bag, Site: #1 right hand. Medication Ordered: Rocephin IV 2 gm/50mL (NOW). Start 22:28 05/21/2017 Ana Maria Lafleur R.N., Stop 23:29 05/21/2017 Ana Maria Lafleur R.N. Medication Administered: ZITHROMAX [IVPB] (AZITHROMYCIN), Dose: 500 mg IVPB over 30 minute(s), Rate: 250 mL/hr, Dispensed: 250 mL bag, Site: #1 right hand. Medication Ordered: Zithromax IV 500 mg/250 mL (NOW). Given 22:32 05/21/2017 Ana Maria Lafleur R.N. Medication Administered: ASPIRIN [PO], Dose: 324 mg PO. Medication Ordered: Aspirin PO 325 mg (NOW). Start 01:26 05/22/2017 Reji Lazo RSimranN. Medication Administered: NOREPINEPHRINE [IV DRIP], Dose: 2 mcg Drip IV, Rate: 2 mcg/min, Dispensed: 250 mL bag, Site: #2 left forearm. Medication Ordered: NOREpinephrine Drip IV : 0.5-12 mcg/min (HIGH ALERT MEDICATION, NOW). Start 02:19 05/22/2017 Reji Lazo R.N. Medication Administered: DOBUTAMINE [IV DRIP] (DOBUTAMINE HCL), Dose: Drip IV, Rate: 2 mcg/kg/min, Site: #3 right subclav central line(see procedure note). Medication Ordered: DOBUTamine Drip IV : 2 mcg/kg/min (HIGH ALERT MEDICATION, NOW) (vo to give to RN EMS for transport in the event needed).
--- NOTE | 2017-05-24 18:03 | ED MED RECONCILIATION SUMMARY ---
Patient: ODILON RYAN Medication Reconciliation Report [facility] VisitID: [id number] [address] [place] [address] 76y, F Registration Date/Time: 05/21/2017 Weight: 61.6 kg Height/Length: 62 in. BMI: 24.9 ALLERGIES: Penicillins, Vancomycin The patient's Home Medications are listed below: THE FOLLOWING MEDICATIONS NEED TO BE RECONCILED: Atorvastatin Calcium Oral 20 mg, at bedtime Digoxin Oral (125 mcg) 1 tablet, every other day Ferrous Sulfate Oral 325 mg, 2x a day Gabapentin Oral (300 mg), 3x a day Lisinopril Oral 2.5 mg, daily Ondansetron Oral 4 mg, 3x a day OxyCODONE HCl Oral 7.5 Potassium Chloride Oral 10 meq, 2x a day Sertraline HCl Oral 12.5mg, daily Torsemide Oral (20 mg), 2x a day Warfarin Sodium Oral (2.5 mg) 1 tablet, daily The source(s) of the original Home Medication information: patient patient's family member The following Medications were given to the patient in the Emergency Department: IV NS IV Fluids bolus 0, then 1000 mL/hr, administered: 05/21/2017 8:49:00 PM Rocephin [IVPB] IVPB bolus 0, then 2 gm 100 mL/hr, administered: 05/21/2017 9:24:00 PM Zithromax [IVPB] IVPB bolus 0, then 500 mg 250 mL/hr, administered: 05/21/2017 10:28:00 PM Aspirin [PO] PO 324 mg, administered: 05/21/2017 10:32:00 PM NOREPINEPHRINE [IV DRIP] Drip IV bolus 0, then 2 mcg 2 mcg/min, administered: 05/22/2017 1:26:00 AM IV NS IV Fluids bolus 0, then 1000 mL/hr, administered: 05/21/2017 12:36:00 AM Dobutamine [IV Drip] Drip IV bolus 0, then 2 mcg/kg/min, administered: 05/22/2017 2:19:00 AM The following Medications were prescribed to the patient: None.
[2017-06-10] MEDS ORDERED: ZESTRIL2.5 MG PO (01:34)
[2017-06-10] MEDS ORDERED: TOPROL XL25 MG PO (01:36)
[2017-06-10] MEDS ORDERED: COUMADIN2.5 MG PO (01:38)
[2017-06-11] MEDS ORDERED: COUMADIN5 MG PO (13:37)
== END 2017-05-22 02:46 | disposition short-term general hospital (02) ==
LOC: ED SRH 20:00 → TRANS SRH 21:31 → ED SRH 21:31
DX: I21.4 Non-ST elevation (NSTEMI) myocardial infarction (principal); R65.20 Severe sepsis without septic shock; R41.82 Altered mental status, unspecified; G96.9 Disorder of central nervous system, unspecified; K92.2 Gastrointestinal hemorrhage, unspecified; N18.9 Chronic kidney disease, unspecified; N17.9 Acute kidney failure, unspecified; N30.90 Cystitis, unspecified without hematuria; I13.0 Hypertensive heart and chronic kidney disease with heart failure and stage 1 through stage 4 chronic kidney disease, or unspecified chronic kidney disease; K92.1 Melena; F17.200 Nicotine dependence, unspecified, uncomplicated